=== PATIENT | male | born 1930 | race Caucasian/White ===

== ENCOUNTER 2016-12-02 10:54 | Outpatient (CLI) | payer MEDICARE ==
[~2016-12-02] VITALS: Ht 185.4 cm; Wt 104.5 kg
--- NOTE | ~2016-12-02 | HEMODYNAMI ---
PATIENT:MICHAEL TREJO MEDICAL RECORD: [id number] : 32 LOCATION:[facility] ADMISSION DATE: 12/02/16 Generatedon:12/02/201613:20 Patient name: MICHAEL TREJO Patient #: [id number] SSN: : 1930 Date of study: 12/02/2016 Page: Of Hemodynamic Procedure Report Patient Data Patient Demographics Procedure consent was obtained First Name: MICHAEL Gender: Male Last Name: NEIL : 1930 [facility] Initial: W Age: 86 year(s) Patient #: [id number] Race: Unknown Additional ID: [id number] Contact details Address: [address] [place] [address] DRIVE State: [place] City: [place] Zip code: [address] Admission Admission Data Admission Date: 12/02/2016 Admission Time: 10:54 Lab Results Lab Result Date: 12/02/2016 Lab Result Time: 11:30 Biochemistry Name Units Result Min Max BUN mg/dl 28 --(----)-* 7 18 Creatinine mg/dl 1.6 --(----)-* 0.6 1.3 CBC Name Units Result Min Max Hematocrit % 37.3 *-(----)-- 42 54 Hemoglobin g/dl 12.2 *-(----)-- 13.5 17.5 Procedure Procedure Types Cath Procedure Diagnostic Procedure [facility] w/Coronaries PCI Procedure Coronary Stent Initial Miscellaneous Procedures Moderate Sedation up to 30 minutes Procedure Description Procedure Date Procedure Date: 12/02/2016 Procedure Start Time: 12:47 Procedure End Time: 13:10 Procedure Staff Name Function Dhara Monique RT Scrub Roman Harris RN Nurse Miquel Lynn MD Performing Physician Rio Prasad RT Monitor Procedure Data Cath Procedure Fluoroscopy Diagnostic fluoroscopy Total fluoroscopy Time: 8.3 time: 8.3 min min Diagnostic fluoroscopy Total fluoroscopy dose: dose: 492.77 mGy 492.77 mGy Contrast Material Contrast Material Type Amount (ml) Isovue 300 120 Entry Location Entry Primary Successful Side Size Upsize Upsize Entry Closure [place] ccessful Closure Location (Fr) 1 (Fr) 2 (Fr) Remarks Device Remarks Radial Right 6 Fr Mechanical artery Short Compression Femoral Right 7 Fr Exoseal artery Short Estimated blood loss: 10 ml Diagnostic catheters Device Type Used For End Catheter Placement Terumo 5Fr [place] 110cm Procedure catheter Procedure Complications No complications Procedure Medications Medication Administration Route Dosage Oxygen NC 2 l/min Heparin Flush Bag added to field 2 bags (1000units/500ml NS) 0.9% NaCl I.V. 100 ml/hr Radial Cocktail added to field 1 syringe (Verapomil 2mg/Nitro 400mcg/Heparin 1500units) Fentanyl I.V. 50 mcg Versed I.V. 1 mg Radial Cocktail I.A. 1 syringe (Verapomil 2mg/Nitro 400mcg/Heparin 1500units) Heparin Bolus I.V. 4000 units Fentanyl I.V. 25 mcg Versed I.V. 0.5 mg Hemodynamics Rest HGB: 12.2 (g/dl) Heart Rate: 56 (bpm) Pressure Samples Time Site Value (mmHg) Purpose Heart Use Rate(bpm) 12:50 AO 96/52(46) Snapshot 78 12:50 AO 127/38(44) Snapshot 60 Snapshots Pre Cath Intra NCS Post Cath Vital Signs Time Heart Resp SPO2 NIBP (mmHg) Rhythm Pain Sedation Rate (ipm) (%) Status Level (bpm) 12:38:44 56 17 98 172/80(151) NSR 0 (11) 10(A) , No pain 12:42:58 57 17 94 137/81(121) NSR 0 (11) 10(A) , No pain 12:47:14 56 17 96 140/69(116) NSR 0 (11) 10(A) , No pain 12:51:30 60 17 93 119/59(85) NSR 0 (11) 9(A) , No pain 12:56:31 57 17 94 129/59(96) NSR 0 (11) 9(A) , No pain 13:00:43 59 18 95 122/64(94) NSR 0 (11) 9(A) , No pain 13:05:01 57 17 95 120/62(96) NSR 0 (11) 9(A) , No pain 13:09:19 56 18 95 126/58(91) NSR 0 (11) 9(A) , No pain Medications Time Medication Route Dose Verified Delivered Reason Note s Effectiveness by by 12:37:56 Oxygen NC 2 l/min Roman Owens Per physician Steven Harris RN RN 12:38:06 Heparin Flush added 2 bags Roman Owens used for Bag to Steven Harris RN procedure (1000units/500ml field RN NS) 12:38:19 0.9% NaCl I.V. 100 Roman Morrelly Per physician ml/hr Steven Harris RN RN 12:41:44 Radial Cocktail added 1 Roman Owens used for (Verapomil to syringe Steven Harris RN procedure 2mg/Nitro field RN 400mcg/Hepari 12:47:36 Fentanyl I.V. 50 mcg Roman Owens for sedation Steven Harris RN RN 12:47:44 Versed I.V. 1 mg Roman Owens for sedation Steven Harris RN RN 12:49:16 Radial Cocktail I.A. 1 Roman Arguellorey for (Verapomil syringe Steven Lynn MD vasodilation 2mg/Nitro RN 400mcg/Hepari 12:55:19 Heparin Bolus I.V. 4000 Roman Owens for units Steven Harris RN anticoagulation RN 12:55:25 Fentanyl I.V. 25 mcg Roman Owens for sedation Steven Harris RN RN 12:55:31 Versed I.V. 0.5 mg Roman Owens for sedation Steven Harris RN rubber process hand Log Time Note 12:04:16 Dhara Monique RT(R) sent for patient. Start room use. 12:04:17 Time tracking: Regular hours 12:04:22 Plan of Care:Hemodynamics will remain stable., Cardiac rhythm will remain stable., Comfort level will be maintained., Respiratory function will remain adequate., Patient/ family verbilizes understanding of procedure., Procedure tolerated without complication., Recovers from procedure without complications.. 12:27:35 Patient received from Pre/Post Procedure Room to CCL 3 Alert and oriented. Tansferred to table in Supine position. 12:27:36 Correct patient and procedure confirmed by team. 12:27:36 Warm blankets applied, and kris hugger turned on for patient comfort. 12:27:38 Signed procedure consent form obtained from patient. 12:27:39 ECG and BP/O2 sat monitors applied to patient. 12:27:46 H&P Date Dictated: 11/30/2016 Within 30 days and on chart., H&P Addendum completed by physician on day of procedure. (MUST COMPLETE FOR ALL OUTPATIENTS). 12:27:47 Pre-procedure instructions explained to patient. 12:27:48 Pre-op teaching completed and patient verbalized understanding. 12:27:49 Family in waiting room. 12:27:50 Patient NPO since Midnight. 12:37:30 Vital chart was started 12:37:56 Oxygen 2 l/min NC was administered by Roman Harris RN; Per physician; 12:38:06 Heparin Flush Bag (1000units/500ml NS) 2 bags added to field was administered by Roman Harris RN; used for procedure; 12:38:19 0.9% NaCl 100 ml/hr I.V. was administered by Roman Harris RN; Per physician; 12:39:54 Is the patient allergic to Iodine/contrast media? No. 12:39:55 Is patient on blood thinner?Yes 12:39:58 ACC The patient was administered the following blood thiners within the last 24 hours: ACCPlavix 12:39:59 Patient diabetic? Yes. 12:40:00 If diabetic: On Metformin? No 12:40:03 Previous problem with sedation/anesthesia? No ? 12:40:04 Snore? Yes 12:40:05 Sleep apnea? No 12:40:06 Opens mouth fully? Yes 12:40:06 Deviated septum? No 12:40:07 Sticks out tongue? Yes 12:40:09 Airway obstruction? No ? 12:40:11 Dentures? No ? 12:40:14 Modified Carlos's test Ulnar < 7 seconds 12:40:16 Patient pain scale 0/10 ?. 12:40:24 IV patent on arrival in left forearm with 0.9% NaCl at [facility]. 12:41:06 Lab Result : Hemoglobin 12.2 g/dl 12:41:06 Lab Result : Hematocrit 37.3 % 12:41:06 Lab Result : BUN 28 mg/dl 12:41:06 Lab Result : Creatinine 1.6 mg/dl 12:41:09 Lab results completed and on chart. 12:41:11 Right Radial & Right Groin area was prepped with chlora-prep and draped in sterile fashion 12:41:12 Sharps counted by scrub and verified by R.N. 12:41:12 Alarms reviewed by R. N. 12:41:14 Use device set Radial Dx 12:41:15 Tegaderm 4 x 4 opened to sterile field. 12:41:16 Acist Manifold opened to sterile field. 12:41:17 Acist Syringe opened to sterile field. 12:41:17 Acist Hand Control opened to sterile field. 12:41:18 Bag Decanter opened to sterile field. 12:41:18 Medline Cath Pack opened to sterile field. 12:41:19 St Toribio 260cm J .035 wire opened to sterile field. 12:41:19 Terumo 6Fr Slender Glidesheath opened to sterile field. 12:41:44 Radial Cocktail (Verapomil 2mg/Nitro 400mcg/Heparin 1500units) 1 syringe added to field was administered by Roman Harris RN; used for procedure; 12:42:10 Baseline sample Acquired. 12:42:16 Rhythm: sinus rhythm 12:42:18 Full Disclosure recording started 12:46:40 --------ALL STOP TIME OUT------ 12:46:40 Physician arrived 12:46:41 Final Timeout: patient, procedure, and site verified with staff and physician. All members of the team are in agreement. 12:46:42 Right Radial & Right Groin site verified by team. 12:46:44 Physical assessment completed. ASA score P 2 - A patient with mild systemic disease as per Miquel Lynn MD. 12:46:48 Sedation plan: IV Moderate Sedation Versed, Fentanyl 12:46:50 Zero performed for pressure channel P1 12:46:57 Zero performed for pressure channel P1 12:47:36 Fentanyl 50 mcg I.V. was administered by Roman Harris RN; for sedation; 12:47:44 Procedure started. 12:47:44 Versed 1 mg I.V. was administered by Roman Harris RN; for sedation; 12:47:50 Local anesthetic to right radial artery with Lidocaine 2% by Miquel Lynn MD.INITIAL ACCESS ONLY 12:47:57 A 6 Fr Short sheath was inserted into the Right Radial artery 12:49:00 A Terumo 5Fr [place] 110cm catheter was advanced over the wire and used for Procedure. 12:49:16 Radial Cocktail (Verapomil 2mg/Nitro 400mcg/Heparin 1500units) 1 syringe I.A. was administered by Miquel Lynn MD; for vasodilation; 12:49:54 LV gram done using VELASQUEZ 12:49:58 Injector settings: Ml/sec: 5, Volume: 15, 12:50:16 EF : 55 % 12:50:37 LCA angiography performed. 12:52:15 RCA angiography performed. 12:52:25 Terumo 7Fr [place] Sheath opened to sterile field. 12:52:30 Triplett Sci Choice PT Extra Support J 300cm .014 gu opened to sterile field. 12:54:07 Medtronic Launcher 7Fr AR 2.0 guide catheter opened to sterile field. 12:54:20 Local anesthetic to right femoral artery with Lidocaine 2% by Miquel Lynn MD.ADDITIONAL ACCESS 12:54:27 A 7 Fr Short sheath was inserted into the Right Femoral artery 12:54:47 7 Fr AR 2 guide catheter was inserted over the wire 12:55:19 Heparin Bolus 4000 units I.V. was administered by Roman Harris RN; for anticoagulation; 12:55:25 Fentanyl 25 mcg I.V. was administered by Roman Harris RN; for sedation; 12:55:31 Versed 0.5 mg I.V. was administered by Roman Harrsi RN; for sedation; 12:56:02 CHOICE PT ES wire advanced. 12:56:08 Wire removed. 12:56:24 Triplett Sci Choice PT Extra Support J 300cm .014 gu opened to sterile field. 12:56:32 CHOICE PT ES wire advanced. 12:57:32 Wire advanced across lesion. 12:58:23 Rodarte Whisper J 300cm 0.014 guide wire opened to sterile field. 12:58:29 WHISPER wire advanced. 13:00:36 Inflation Number: 1 A Medtronic Integrity 3.0 X 15 stent was prepped and advanced across the Mid RCA. The stent was deployed at 19 JESIKA for 0:10 (min:sec). 13:00:47 Inflation number: 2 The stent balloon was then re-inflated across the Mid RCA to 23 JESIKA for 0:10 (min:sec). 13:04:34 Inflation Number: 1 A Medtronic Integrity 3.5 X 15 stent was prepped and advanced across the Prox RCA. The stent was deployed at 17 JESIKA for 0:10 (min:sec). 13:04:59 Stent catheter was removed intact over wire. 13:05:15 Cordis 7Fr Exoseal opened to sterile field. 13:07:20 Sheath removed intact; hemostasis achieved with Exoseal to the Right Femoral artery. 13:07:31 Sheath removed intact; hemostasis achieved with Mechanical Compression to the Right Radial artery. 13:08:03 Procedure ended.(Physican Out) 13:08:14 Fluoroscopy time 08.30 minutes. 13:08:23 Contrast amount:Isovue 300 120ml. 13:08:28 Fluoroscopy dose: 492.77 mGy 13:08:28 Flurop Dose total: 492.77 13:08:30 Sharps counted by scrub and verified by R.N. 13:08:33 TR band inflated with 12cc of air. 13:08:34 Insertion/operative site no bleeding no hematoma. 13:08:37 Post-op/insertion site Right Femoral artery dressed using a 4 x 4 and Tegaderm. 13:08:42 Post right femoral artery:stable, soft, clean and dry 13:08:44 Post Procedure Pulses reassessed and unchanged 13:08:47 Post-procedure physical assessment completed. ASA score P 2 - A patient with mild systemic disease as per Miquel Lynn MD. 13:08:49 Post procedure rhythm: unchanged. 13:08:51 Estimated blood loss: 10 ml 13:08:53 Patient needs reinforcement of post procedure teaching. 13:08:53 Post procedure instruction explained to patient.Patient verbalizes understanding. 13:10:03 Procedure type changed to Cath procedure, Diagnostic procedure, LHC, LHC w/Coronaries, PCI procedure, Coronary Stent Initial, Miscellaneous Procedures, Moderate Sedation up to 30 minutes 13:10:04 Procedure and supply charges have been captured, reviewed, submitted and are correct. 13:10:06 Procedure Complication : No complications 13:10:08 See physician's report for complete and final results. 13:10:08 Vital chart was stopped 13:10:10 Report given to Pre/Post Procedure Room. 13:10:12 Patient transfered to Pre/Post Procedure Room with Stretcher. 13:10:14 Full Disclosure recording stopped 13:10:14 Procedure ended. 13:10:17 End room use (Document Last) Intervention Summary Intervention Notes Time ActionType Lesion and Equipment Action# Pressure Duration Attributes Used 13:00:36 Place stent Mid RCA Medtronic 1 19 00:10 Integrity 3.0 X 15 stent 13:00:47 Reinflate Mid RCA Medtronic 2 23 00:10 stent Integrity balloon 3.0 X 15 stent 13:04:34 Place stent Prox RCA Medtronic 1 17 00:10 Integrity 3.5 X 15 stent Device Usage Item Name Manufacture Quantity Catalog Number Hospital Part Current Minim al Lot# / Charge Number Stock Stock Serial# Code Tegaderm 4 1 [id number] 5 x 4 Acist Acist 1 99877 [id number] 156774 [id number] 5 Manifold [employer] Inc Acist Hand Acist 1 50784 261706 624744 406905 5 Control [employer] Inc Acist Acist 1 91568 530826 314808 056419 20 Syringe Medical Systems Inc Medline Cardinal 1 [id number] 089236 62010 506156 5 Cath Pack Health Bag Microtek 1 2002S 646888 59156 606640 5 [employer] Terumo 6Fr Terumo 1 [id number] 452221 692622 554617 [address] Tor[address] St Toribio 1 850734 581943 233028 477519 30 260cm J .035 wire Terumo 5Fr Terumo 1 40-1916 900722 885891 007947 5 [place] 110cm catheter Terumo 7Fr Terumo 1 [id number] 443143 063858 737860 5 [place] Sheath Triplett Sci Triplett 2 [id number] 369316 235014 221261 5 Choice PT Scientific Extra Support J 300cm .014 gu Medtronic Medtronic 1 [id number] 871689 180776 614604 0 Launcher 7Fr [place] 2.0 guide catheter Rodarte Rodarte 1 [id number] 931171 018252 564378 5 Whisper J Vascular 300cm 0.014 guide wire Medtronic Medtronic 1 [id number] 782801 518415 611798 5 [id number] Integrity 3.0 X 15 stent Medtronic Medtronic 1 [id number] 496096 267370 5 [id number] Integrity 3.5 X 15 stent Cordis 7Fr Cardinal 1 [id number] 510763 244780 789671 5 [facility] Signature Audit [place] Stage Time Signature Unsigned Intra-Procedure 12/02/2016 Rio Prasad RT(R) 1:10:52 PM RT(R) 12/02/2016 1:14:17 PM Intra-Procedure 12/02/2016 Rio Prasad RT(R) 1:15:14 PM RT(R) 12/02/2016 1:18:46 PM Intra-Procedure 12/02/2016 Rio Prasad 1:20:45 PM RT(R) Signatures Monitor : Rio Prasad RT Signature : Date : Time : [id number] [place] [address]
[~2016-12-02 10:54] MED LIST: ALLEGRA180 MG PO; ASPIRIN 81 MG E81 MG PO; DIABETA1.25 MG PO; LEVOTHROID75 MCG PO; LIPITOR40 MG PO; LOTENSIN20 MG PO; MULTI-DAY VITAM1 TAB PO; PACERONE100 MG PO; PLAVIX75 MG PO; PROSCAR5 MG PO
[2016-12-02 11:29] VITALS: BP 235/94; Ht 185.4 cm; Wt 104.5 kg
[2016-12-02 11:46] LABS: EOSINOPHILS 2.9 % (0-7); HEMATOCRIT 37.3 % (42.0-54.0); HEMOGLOBIN 12.2 g/dL (13.5-17.5); IMMATURE GRANULOCYTES 0.5 % (0-5); LYMPHOCYTES 27.2 % (15-50); MCH 29.3 pg (26.0-34.0); MCHC 32.7 g/dL (31.0-37.0); MCV 89.4 fL (80.0-100.0); MEAN PLATELET VOLUME 10.2 fL (7.4-10.4); MONOCYTES 8.6 % (2-11); NEUTROPHILS 59.8 % (40-80); PLATELET COUNT 102 10x3/uL (130-400); RBC 4.17 10x6/uL (4.20-6.10); RDW 13.8 % (11.5-14.5); WBC 4.2 10x3/uL (4.8-10.8)
[2016-12-02 12:07] LABS: ANION GAP 13.4 mmol/L (8-16); CALCIUM 8.9 mg/dL (8.5-10.1); CARBON DIOXIDE 24.6 mmol/L (21.0-32.0); CREATININE - SERUM 1.6 mg/dL (0.6-1.3)
--- NOTE | 2016-12-02 13:53 | NUR ---
1340 LYING FLAT, RESTING WITH EYES CLOSED. ROOM AIR W NO DISTRESS. SINUS JASVIR RATE 53 WNO C/O CHEST PAIN. PULSES PALP X 4. R GROIN 7F EXOSEAL C/D/I WITH NO HEMATOMA OR BLEEDING. AT BEDSIDE. DENIES NEEDS AT THIS TIME.
--- NOTE | 2016-12-02 14:29 | NUR ---
REMAINS FLAT, ALL VITALS WNL. R GROIN 7F EXOSEAL C/D/I WITH NO HEMATOMA OR BLEEDING. REMAINS AT SIDE.
--- NOTE | 2016-12-02 15:31 | NUR ---
RESTING QUIETLY. VSS. RIGHT GROIN AND RIGHT WRIST CDI, NO BLEEDING OR HEMATOMA NOTED. AT BEDSIDE, CALL LIGHT WITHIN REACH.
--- NOTE | 2016-12-02 16:18 | NUR ---
2CC OF AIR REMOVED FROM TR BAND. NO BLEEDING NOTED.
--- NOTE | 2016-12-02 16:30 | NUR ---
HOB ELEVATED 30 DEGREES. RIGHT GROIN CDI. 2CC OF AIR REMOVED FROM TR BAND.
--- NOTE | 2016-12-02 16:43 | NUR ---
LEFT HAND PIV D/C'D WITH CATHETER INTACT, BAND AID TO SITE. UP TO BEDSIDE TO GET DRESSED.
--- NOTE | 2016-12-02 16:50 | NUR ---
UP TO RESTROOM TO VOID.
--- NOTE | 2016-12-02 16:55 | NUR ---
DISHCARGE INSTRUCTIONS GIVEN, VERBALIZED UNDERSTANDING. REMAINING AIR REMOVED FROM TR BAND, DRESSING TO SITE.
--- NOTE | 2016-12-02 17:05 | NUR ---
TAKEN OUT VIA WHEELCHAIR BY CATH PIPING ENGINEER. LEFT FACILITY WITH FAMILY MEMBER AND ALL PERSONAL BELONGINGS.
--- NOTE | 2016-12-04 10:19 | OP ---
PATIENT NAME: MICHAEL TREJO MEDICAL RECORD: [id number] :32 LOCATION:D.CAT ADMISSION DATE: SURGEON: KRISTI RILEY MD DATE OF OPERATION: 12/02/2016 PROCEDURES: 1. PTCA stent, RCA. 2. Left heart catheterization. 3. Selective coronary angiography. 4. Left ventriculogram. INDICATIONS: Angina and coronary artery disease. PROCEDURE IN DETAIL: After informed consent was obtained and after a detailed explanation of the risks, benefits as well as alternative therapies, the patient elected to proceed with angiogram and angioplasty. The right femoral area was prepped and draped in normal sterile fashion. The right femoral artery was cannulated via modified Seldinger technique with placement of 7-Welsh sheath. All catheters exchanged through this sheath. FINDINGS: The left ventriculogram was performed in standard 30-degree VELASQUEZ view, reveals good cardiac wall motion throughout all segments. Overall ejection fraction estimated at 60%. SELECTIVE CORONARY ANGIOGRAPHY: 1. Left main is with no significant angiographic disease. 2. Left anterior descending has 30%-40% stenosis in the mid vessel. This does not appear to be flow-limiting. 3. Left circumflex shows moderate irregularities, but no flow-limiting stenosis. 4. Right coronary has 80% stenosis times 2 in the proximal and mid vessel. PTCA STENT OF THE RIGHT CORONARY: Stents used were 3.0 x 15 and a 3.5 x 15, both Integrity stents. Result was 0% residual stenosis. No angiographic evidence of dissection or thrombus. OVERALL IMPRESSION: Successful percutaneous transluminal coronary angioplasty stent of the RCA going from 80% initial stenosis times 2 to 0% residual. TRANSINT:[id number] Voice Confirmation ID: [id number] DOCUMENT ID: [id number] KRISTI RILEY MD at 1019 CC: [id number] DICTATION DATE: 12/02/16 1309 FREEZER PERSON: 12/02/161951 [facility] CLI 12/02/[address] [address]
== END 2016-12-02 17:05 | disposition home or self-care (01) ==
LOC: D.CATH 10:54
PROVIDERS: Internal Medicine Interventional Cardiology
DX: I25.10 Atherosclerotic heart disease of native coronary artery without angina pectoris (principal); I10 Essential (primary) hypertension; R06.00 Dyspnea, unspecified; K21.9 Gastro-esophageal reflux disease without esophagitis; E78.5 Hyperlipidemia, unspecified

== ENCOUNTER → 2017-11-26 09:26 | Outpatient (CLI) | payer MEDICARE ==
[~2017-11-26] VITALS: Ht 185.4 cm; Wt 100.0 kg
--- NOTE | ~2017-11-26 | HEMODYNAMI ---
PATIENT:MICHAEL TREJO MEDICAL RECORD: [id number] : 32 LOCATION:[facility] ADMISSION DATE: 11/26/17 Generatedon:11/26/201714:34 Patient name: MICHAEL TREJO Patient #: [id number] SSN: : 1930 Date of study: 11/26/2017 Page: Of Hemodynamic Procedure Report Patient Data Patient Demographics Procedure consent was obtained First Name: MICHAEL Gender: Male Last Name: NEIL : 1930 [facility] Initial: W Age: 87 year(s) Patient #: [id number] Race: Unknown Additional ID: [id number] Contact details Address: [address] [place] [address] [address]IVE State: [place] City: [place] Zip code: [address] Past Medical History Allergies: No known allergies Admission Admission Data Admission Date: 11/26/2017 Admission Time: 9:26 Lab Results Lab Result Date: 11/26/2017 Lab Result Time: 10:35 Biochemistry Name Units Result Min Max BUN mg/dl 30 --(----)-* 7 18 Creatinine mg/dl 1.6 --(----)-* 0.6 1.3 CBC Name Units Result Min Max Hematocrit % 32.4 *-(----)-- 42 54 Hemoglobin g/dl 10.9 *-(----)-- 13.5 17.5 Procedure Procedure Types Cath Procedure Diagnostic Procedure [facility] w/Coronaries Sedation Charges Moderate Sedation up to 15 minutes PCI Procedure Coronary Stent Coronary Stent Initial Procedure Description Procedure Date Procedure Date: 11/26/2017 Procedure Start Time: 14:01 Procedure End Time: 14:32 Procedure Staff Name Function Miquel Lynn MD Performing Physician Rio Prasad RT Monitor Bryson Vázquez RN Nurse Dhara Monique RT Scrub Procedure Data Cath Procedure Fluoroscopy Diagnostic fluoroscopy Total fluoroscopy Time: time: 12.1 min 12.1 min Diagnostic fluoroscopy Total fluoroscopy dose: dose: 1297 mGy 1297 mGy Contrast Material Contrast Material Type Amount (ml) Isovue 300 137 Entry Location Entry Primary Successful Side Size Upsize Upsize Entry Closure Succes sful Closure Location (Fr) 1 (Fr) 2 (Fr) Remarks Device Remarks Femoral Right 5 Fr 6 Fr Exoseal artery Short Estimated blood loss: 10 ml Diagnostic catheters Device Type Used For End Catheter Placement MULTIPACK Pigtail 5 Fr Procedure catheter MULTIPACK JL 4.0 5Fr Procedure catheter MULTIPACK 3DRC 5Fr Procedure catheter DIAGNOSTIC AR 2 MOD 5 Fr Procedure catheter ([id number]) Procedure Complications No complications Procedure Medications Medication Administration Route Dosage 0.9% NaCl I.V. 100 ml/hr Oxygen etCO2 Nasal cannula 2 l/min Heparin Flush Bag added to field 2 bags (1000units/500ml NS) Lidocaine 2% added to field 20 Versed I.V. 1 mg Fentanyl I.V. 50 mcg Heparin Bolus I.V. 4000 units Versed I.V. 1 mg Hemodynamics Rest HGB: 10.9 (g/dl) Heart Rate: 37 (bpm) Snapshots Pre Cath Intra NCS Post Cath Vital Signs Time Heart Resp SPO2 etCO2 NIBP (mmHg) Rhythm Pain Sedation Rate (ipm) (%) (mmHg) Status Level (bpm) 13:46:18 51 18 96 0 190/85(160) NSR 0 (11) 10(A) , No pain 13:51:50 47 14 100 32 170/80(142) NSR 0 (11) 10(A) , No pain 13:57:15 56 15 94 31.2 159/59(130) NSR 0 (11) 10(A) , No pain 14:01:58 56 13 97 28.3 135/80(96) NSR 0 (11) 10(A) , No pain 14:06:41 48 13 98 42.5 143/72(123) NSR 0 (11) 9(A) , No pain 14:11:52 46 13 98 35.8 154/73(119) NSR 0 (11) 9(A) , No pain 14:16:41 48 16 98 7.4 160/68(126) NSR 0 (11) 9(A) , No pain 14:21:29 46 14 98 36.5 166/72(131) NSR 0 (11) 9(A) , No pain 14:26:18 49 15 96 29.8 152/72(120) NSR 0 (11) 10(A) , No pain 14:31:18 46 17 98 34.2 Measuring NSR 0 (11) 10(A) , No pain 14:32:37 45 16 98 35 Disturbed NSR 0 (11) 10(A) , No pain Medications Time Medication Route Dose Verified Delivered Reason Notes Effectiveness by by 13:52:39 0.9% NaCl I.V. 100 Bryson Bryson Per physician ml/hr Gurpreet Vázquez RN RN 13:52:59 Oxygen etCO2 2 Bryson Bryson Per physician Nasal l/min Gurpreet Vázquez cannula RN RN 13:53:11 Heparin Flush added 2 Bryson Bryson used for Bag to bags Gurpreet Vázquez procedure (1000units/500ml field RN RN NS) 13:53:25 Lidocaine 2% added 20ml Bryson Bryson for local to vial Gurpreet Vázquez anesthetic field RN RN 13:58:00 Versed I.V. 1 mg Bryson Bryson for sedation Gurpreet Vázquez RN RN 13:58:08 Fentanyl I.V. 50 Bryson Bryson for sedation mcg Gurpreet Vázquez RN RN 14:07:48 Heparin Bolus I.V. 4000 Bryson Bryson for units Gurpreet Vázquez anticoagulation RN RN 14:19:57 Versed I.V. 1 mg Bryson Bryson for sedation Gurpreet Vázquez RN book retailer Log Time Note 13:26:58 Rio Prasad RT(R) sent for patient. Start room use. 13:26:59 Time tracking: Regular hours 13:27:03 Plan of Care:Hemodynamics will remain stable., Cardiac rhythm will remain stable., Comfort level will be maintained., Respiratory function will remain adequate., Patient/ family verbilizes understanding of procedure., Procedure tolerated without complication., Recovers from procedure without complications.. 13:37:57 Patient received from Pre/Post Procedure Room to CCL 1 Alert and oriented. Tansferred to table in Supine position. 13:37:58 Warm blankets applied, and kris hugger turned on for patient comfort. 13:37:59 Correct patient and procedure confirmed by team. 13:38:00 Signed procedure consent form obtained from patient. 13:38:01 ECG and BP/O2 sat monitors applied to patient. 13:38:02 Full Disclosure recording started 13:44:34 Vital chart was started 13:52:39 0.9% NaCl 100 ml/hr I.V. was administered by Bryson Vázquez RN; Per physician; 13:52:48 Baseline sample Acquired. 13:52:59 Oxygen 2 l/min etCO2 Nasal cannula was administered by Bryson Vázquez RN; Per physician; 13:53:11 Heparin Flush Bag (1000units/500ml NS) 2 bags added to field was administered by Bryson Vázquez RN; used for procedure; 13:53:14 Rhythm: sinus rhythm 13:53:25 Lidocaine 2% 20ml vial added to field was administered by Bryson Vázquez RN; for local anesthetic; 13:53:27 H&P Date Dictated: 11/18/2017 Within 30 days and on chart., H&P Addendum completed by physician on day of procedure. (MUST COMPLETE FOR ALL OUTPATIENTS). 13:53:28 Pre-procedure instructions explained to patient. 13:53:29 Pre-op teaching completed and patient verbalized understanding. 13:53:31 Family in waiting room. 13:53:32 Patient NPO since Midnight. 13:53:50 Patient allergic to No known allergies 13:53:52 Is the patient allergic to Iodine/contrast media? No. 13:53:53 Is patient on blood thinner?Yes 13:53:55 ACC The patient was administered the following blood thiners within the last 24 hours: ACCPlavix 13:54:09 Patient diabetic? No. 13:54:20 Previous problem with sedation/anesthesia? No ? 13:54:22 Snore? Yes 13:54:23 Sleep apnea? No 13:54:24 Deviated septum? No 13:54:25 Opens mouth fully? Yes 13:54:26 Sticks out tongue? Yes 13:54:27 Airway obstruction? No ? 13:54:29 Dentures? No ? 13:55:08 Pre procedure: right dorsailis pedis pulse 2+ Normal; easily identifiable; not easily obliterated 13:55:10 Patient pain scale 0/10 ?. 13:55:36 DIAGNOSTIC WIRE .035 260cm J wire (231201) opened to sterile field. 13:55:39 IV patent on arrival in left forearm with 0.9% NaCl at [facility]. 13:56:34 Lab Result : BUN 30 mg/dl 13:56:34 Lab Result : Creatinine 1.6 mg/dl 13:56:34 Lab Result : Hemoglobin 10.9 g/dl 13:56:34 Lab Result : Hematocrit 32.4 % 13:56:37 Lab results completed and on chart. 13:56:43 Right groin area was prepped with chlora-prep and draped in sterile fashion 13:56:44 Alarms reviewed by R. N. 13:56:44 Sharps counted by scrub and verified by R.N. 13:56:47 Use device set Femoral Dx 13:56:49 ACIST Syringe (19730) opened to sterile field. 13:56:49 Bag Decanter (2002S) opened to sterile field. 13:56:53 ACIST Hand Control (97805) opened to sterile field. 13:56:53 ACIST Manifold (96282) opened to sterile field. 13:56:55 Tegaderm 4 x 4 (1626W) opened to sterile field. 13:56:55 PERCUTANEOUS ENTRY 19GA needle opened to sterile field. 13:56:56 DIAGNOSTIC Multipack 5Fr catheter set (KP5226) opened to sterile field. 13:56:57 Medline Cath Pack ([id number]) opened to sterile field. 13:57:07 SHEATH 5Fr Prelude ([id number]) opened to sterile field. 13:57:15 Physician arrived 13:57:16 --------ALL STOP TIME OUT------ 13:57:16 Final Timeout: patient, procedure, and site verified with staff and physician. All members of the team are in agreement. 13:57:18 Right groin site verified by team. 13:57:22 Physical assessment completed. ASA score P 2 - A patient with mild systemic disease as per Miquel Lynn MD. 13:57:26 Sedation plan: IV Moderate Sedation Medication:Versed, Fentanyl 13:57:29 Zero performed for pressure channel P1 13:58:00 Versed 1 mg I.V. was administered by Bryson Vázquez RN; for sedation; 13:58:08 Fentanyl 50 mcg I.V. was administered by Bryson Vázquez RN; for sedation; 14:00:54 Procedure started. 14:01:18 Local anesthetic to right femoral artery with Lidocaine 2% by Miquel Lynn MD.INITIAL ACCESS ONLY 14:01:28 A 5 Fr sheath was inserted into the Right Femoral artery 14:01:40 A MULTIPACK Pigtail 5 Fr catheter was advanced over the wire and used for Procedure. 14:02:23 LV gram done using VELASQUEZ 14:02:25 Injector settings: Ml/sec: 10, Volume: 20, 14:03:04 EF : 60 % 14:03:06 LV hemodynamics recorded. 14:03:10 Catheter exchanged over wire. 14:03:15 A MULTIPACK JL 4.0 5Fr catheter was advanced over the wire and used for Procedure. 14:03:52 INFLATOR Merit BasixCompak (FB3678) opened to sterile field. 14:03:53 SHEATH 6Fr Prelude ([id number]) opened to sterile field. 14:03:53 CHOICE PT Extra Support 182cm wire ([id number]) opened to sterile field. 14:04:23 LCA angiography performed. 14:04:28 Catheter exchanged over wire. 14:04:33 A MULTIPACK 3DRC 5Fr catheter was advanced over the wire and used for Procedure. 14:04:58 RCA angiography performed. 14:05:50 Catheter exchanged over wire. 14:05:54 A DIAGNOSTIC AR 2 MOD 5 Fr catheter ([id number]) was advanced over the wire and used for Procedure. 14:06:06 RCA angiography performed. 14:06:17 Catheter removed. 14:06:32 Sheath upsized to a 6 Fr Short. 14:06:44 GUIDE 6FR XBLAD 3.5 catheter ([id number]) opened to sterile field. 14:07:48 Heparin Bolus 4000 units I.V. was administered by Bryson Vázquez RN; for anticoagulation; 14:08:15 6 Fr xblad 3.5 guide catheter was inserted over the wire 14:09:30 ? wire advanced. 14:09:34 Guide Catheter removed. unable to cannulate vessel. 14:09:47 GUIDE 6FR Q 3.5 catheter ([id number]) opened to sterile field. 14:12:18 choice pt wire advanced. 14:14:04 The DANA RX 3.0 x 22 stent ([id number]) was advanced then removed because of failure to cross lesion 14:15:44 Inflate balloon Inflation number: 1 A EUPHORA 3.0 x 20 Balloon ([id number]) was prepped and advanced across the Prox LAD, then inflated to 17 JESIKA for 0:10 (min:sec). 14:15:49 Balloon removed over the wire. 14:18:03 WHISPER 190cm wire ([id number]) opened to sterile field. 14:18:09 EXOSEAL 6Fr (EX600) opened to sterile field. 14:18:22 whisper wire advanced and used as a luca wire. 14:19:00 whisper wire removed. 14:19:57 Versed 1 mg I.V. was administered by Bryson Vázquez RN; for sedation; 14:21:14 Inflation number: 3 The stent balloon was then re-inflated across the Prox LAD to 17 JESIKA for 0:10 (min:sec). 14:21:54 Stent catheter was removed intact over wire. 14:22:07 Wire removed. 14:23:05 CHOICE PT Extra Support 182cm wire ([id number]) opened to sterile field. 14:23:13 choice pt wire advanced. 14:25:26 Wire advanced across lesion. 14:26:09 The INTEGRITY RX 3.0 x 09 stent ([id number]) was advanced then removed because of failure to cross lesion 14:26:19 Wire removed. 14:26:20 Guide catheter removed. 14:26:28 Sheath removed intact; hemostasis achieved with Exoseal to the Right Femoral artery. 14:26:31 Procedure ended.(Physican Out) 14:27:48 Fluoroscopy time 12.10 minutes. 14:27:52 Flurop Dose total: 1297 14:27:52 Fluoroscopy dose: 1297 mGy 14:27:56 Contrast amount:Isovue 300 137ml. 14:27:57 Sharps counted by scrub and verified by R.N. 14:27:59 Insertion/operative site no bleeding no hematoma. 14:28:02 Post-op/insertion site Right Femoral artery dressed using a 4 x 4 and Tegaderm. 14:28:05 Post right femoral artery:stable, soft, clean and dry 14:28:06 Post Procedure Pulses reassessed and unchanged 14:28:08 Post-procedure physical assessment completed. ASA score P 2 - A patient with mild systemic disease as per Miquel Lynn MD. 14:28:11 Post procedure rhythm: unchanged., sinus rhythm 14:28:15 Estimated blood loss: 10 ml 14:28:16 Post procedure instruction explained to patient.Patient verbalizes understanding. 14:28:16 Patient needs reinforcement of post procedure teaching. 14:28:25 Procedure type changed to Cath procedure, Diagnostic procedure, LHC, LHC w/Coronaries, Sedation Charges, Moderate Sedation up to 15 minutes, PCI procedure, Coronary Stent, Coronary Stent Initial 14:32:24 Procedure and supply charges have been captured, reviewed, submitted and are correct. 14:32:26 Procedure Complication : No complications 14:32:27 Vital chart was stopped 14:32:28 See physician's report for complete and final results. 14:32:39 Report given to Pre/Post Procedure Room. 14:32:46 Patient transfered to Pre/Post Procedure Room with Stretcher. 14:32:48 Procedure ended. 14:32:48 Full Disclosure recording stopped 14:32:51 End room use (Document Last) Intervention Summary Intervention Notes Time ActionType Lesion and Equipment Used Action# Pressure Duration Attributes 14:14:04 Discard Prox LAD DANA RX 3.0 x Stent 22 stent ([id number]) 14:15:44 Inflate Prox LAD EUPHORA 3.0 x 1 17 00:10 balloon 20 Balloon ([id number]) 14:21:14 Reinflate Prox LAD DANA RX 3.0 x 3 17 00:10 stent 22 stent balloon ([id number]) 14:26:09 Discard INTEGRITY RX Stent 3.0 x 09 stent ([id number]) Device Usage Item Name Manufacture Quantity Catalog Number Hospital Part Current M inimal Lot# / Charge Number Stock Stock Serial# Code ACIST Syringe Acist 1 92532 944583 449157 791544 2 0 (19161) Medical Systems Inc Bag Decanter Microtek 1 2001S 968465 67603 703636 5 (2001S) Medical Inc. ACIST Hand Acist 1 24590 945745 901974 746754 5 Control Medical (83299) Systems Inc ACIST Manifold Acist 1 86396 933640 766574 535597 5 (42604) Medical Systems Inc Tegaderm 4 x 4 3M 1 1626W 035883 407673 018637 5 (1626W) PERCUTANEOUS Cook Medical 1 C08065 078811 060379 5 ENTRY 19GA needle DIAGNOSTIC Cardinal 1 WA9742 548117 02476 006478 3 0 Multipack 5Fr Health catheter set (OD5803) Medline Cath Cardinal 1 [id number] 977517 78609 641969 5 Pack Health ([id number]) SHEATH 5Fr Merit 1 [id number] 264792 531707 700184 5 Prelude Medical ([id number]) MULTIPACK Cardinal 1 935235 5 Pigtail 5 Fr Health catheter MULTIPACK JL Cardinal 1 760826 5 4.0 5Fr Health catheter INFLATOR Merit Merit 1 VD9740 640068 364429 693745 1 5 [employer] Medical (AZ9180) SHEATH 6Fr Merit 1 [id number] 651836 907710 615080 5 Prelude Medical ([id number]) CHOICE PT Spicer 2 [id number] 305452 885855 030903 5 Extra Support Scientific 182cm wire ([id number]) MULTIPACK 3DRC Cardinal 1 375344 [address] [place] 1 023487 934695 474272 671763 3 0 WIRE .035 260cm J wire (748052) DIAGNOSTIC AR Cardinal 1 [id number] 542799 282180 855239 2 0 2 MOD 5 Fr Health catheter (978682G) GUIDE 6FR Cardinal 1 [id number] 297271 170457 675724 1 0 XBLAD 3.5 Health catheter (47511359) GUIDE 6FR Q Spicer 1 [id number] 353923 891018 7798134 1 3.5 catheter Scientific ([id number]) DANA RX 3.0 x Medtronic 1 [id number] 375185 7361187 050314 5 [id number] 22 stent ([id number]) EUPHORA 3.0 x Medtronic 1 [id number] 097864 575253 662472 5 [id number] 20 Balloon ([id number]) WHISPER 190cm Rodarte 1 [id number] 370978 985033 746528 5 wire Vascular (2133264CR) INTEGRITY RX Medtronic 1 [id number] 833826 923812 125944 5 [id number] 3.0 x 09 stent ([id number]) EXOSEAL 6Fr Cardinal 1 EX600 231538 499156 802558 1 0 (EX600) Health Signature Audit [place] Stage Time Signature Unsigned Intra-Procedure 11/26/2017 Rio Prasad 2:33:59 PM RT(R) Signatures Monitor : Rio Prasad RT Signature : Date : Time : [address] [address]
--- NOTE | ~2017-11-26 | OP ---
PATIENT NAME: MICHAEL TREJO MEDICAL RECORD: [id number] :32 LOCATION:D.CAT ADMISSION DATE: SURGEON: KRISTI RILEY MD DATE OF OPERATION: 11/26/2017 PROCEDURES: 1. PTCA stent LAD. 2. Left heart catheterization. 3. Selective coronary angiography. 4. Left ventriculogram. INDICATION: Angina and coronary artery disease. PROCEDURE IN DETAIL: After informed consent was obtained and after a detailed description of the risks, benefits as well as alternative therapies, the patient elected to proceed with angiogram and angioplasty. The right femoral area is prepped and draped in normal sterile fashion. Right femoral artery was cannulated via modified Seldinger technique with placement of 6-Kyrgyz sheath. All catheters exchanged through the sheath. FINDINGS: Left ventriculogram was performed in standard 30-degree VELASQUEZ view, reveals preserved cardiac wall motion, ejection fraction is 60%. SELECTIVE CORONARY ANGIOGRAPHY: 1. Left main is with no significant angiographic disease. 2. Left anterior descending is tortuous with 75% stenosis in the proximal mid vessel. 3. The left circumflex has moderate irregularities, but no flow-limiting stenosis. 4. The right coronary has previously placed stents, these are widely patent with no significant restenosis. No disease elsewise throughout the RCA or its branches. PTCA STENT OF THE LAD: The stent used was a 3.0 x 22 mm [place]. The Result was 0% residual stenosis. OVERALL IMPRESSION: Successful percutaneous transluminal angioplasty stent of the left anterior descending going from 75% initial stenosis to 0% residual. TRANSINT:[id number] Voice Confirmation ID: [id number] DOCUMENT ID: [id number] KRISTI RILEY MD at 0932 CC: [id number] DICTATION DATE: 11/26/17 1431 POLE MAKER: 11/26/17 1446 DEP CLI 11/26/17 [place] [address]
[~2017-11-26 09:26] MED LIST changes: +ISOSORBIDE MONO30 M1 PO; +NITROGLYCERIN2.5 MG PO; +PROTONIX40 MG PO; +QUESTRAN PACK4 G/PKT PO
[2017-11-26 10:47] LABS: BASOPHILS 0.9 % (0-2); EOSINOPHILS 4.7 % (0-7); HEMATOCRIT 32.4 % (42.0-54.0); HEMOGLOBIN 10.9 g/dL (13.5-17.5); IMMATURE GRANULOCYTES 0.7 % (0-5); LYMPHOCYTES 27.8 % (15-50); MCH 30.4 pg (26.0-34.0); MCHC 33.6 g/dL (31.0-37.0); MCV 90.3 fL (80.0-100.0); MEAN PLATELET VOLUME 10.1 fL (7.4-10.4); MONOCYTES 9.4 % (2-11); NEUTROPHILS 56.5 % (40-80); PLATELET COUNT 103 10x3/uL (130-400); RBC 3.59 10x6/uL (4.20-6.10); RDW 14.3 % (11.5-14.5); WBC 4.5 10x3/uL (4.8-10.8)
[2017-11-26 11:01] LABS: ANION GAP 12.6 mmol/L (8-16); CALCIUM 8.5 mg/dL (8.5-10.1); CARBON DIOXIDE 25.1 mmol/L (21.0-32.0); CREATININE - SERUM 1.6 mg/dL (0.6-1.3); POTASSIUM - SERUM 4.7 mmol/L (3.5-5.1)
[2017-11-26 11:05] VITALS: BP 142/61; Ht 185.4 cm; Wt 100.0 kg
== END | disposition home or self-care (01) ==
LOC: D.CATH 09:26
PROVIDERS: Internal Medicine Interventional Cardiology
DX: I25.119 Atherosclerotic heart disease of native coronary artery with unspecified angina pectoris (principal); Z01.812 Encounter for preprocedural laboratory examination
CPT/HCPCS: 93458; C9600

== ENCOUNTER → 2018-03-07 10:08 | Outpatient (CLI) | payer MEDICARE ==
[~2018-03-07] VITALS: Ht 185.4 cm; Wt 100.0 kg
--- NOTE | ~2018-03-07 | HEMODYNAMI ---
PATIENT:MICHAEL TREJO MEDICAL RECORD: [id number] : 32 LOCATION:[facility] ADMISSION DATE: 03/07/18 Generatedon:03/07/201812:34 Patient name: MICHAEL TREJO Patient #: [id number] SSN: [id number] : 1930 Date of study: 03/07/2018 Page: Of Hemodynamic Procedure Report Patient Data Patient Demographics Procedure consent was obtained First Name: MICHAEL Gender: Male Last Name: NEIL : 1930 Middle Initial: W Age: 87 year(s) Patient #: [id number] Race: Unknown SSN: [id number] Additional ID: [id number] Contact details Address: [address] [place] [address] [address]IVE State: [place] City: [place] Zip code: [address] Past Medical History Allergies: No known allergies Admission Admission Data Admission Date: 03/07/2018 Admission Time: 10:08 Arrival Date: 02/28/2018 Arrival Time: 12:00 Admit Source: Other Insurance Payor: Medicare Height (in.): 73 BSA: 2.22 (m2) Height (cm.): 185.42 BMI: 28.5 (kg/m2) Weight (lbs.): 216 Weight (kg.): 97.98 Lab Results Lab Result Date: 03/07/2018 Lab Result Time: 0:00 Biochemistry Name Units Result Min Max BUN mg/dl 28 --(----)-* 7 18 Creatinine mg/dl 1.4 --(----)*- 0.6 1.3 CBC Name Units Result Min Max Hemoglobin g/dl 9.8 *-(----)-- 13.5 17.5 Procedure Procedure Types Cath Procedure Diagnostic Procedure Cardioversion External Procedure Description Procedure Date Procedure Date: 03/07/2018 Procedure Start Time: 12:28 Procedure End Time: 12:29 Procedure Staff Name Function Miquel Lynn MD Performing Physician Yissel Quinones RT Monitor Roman Harris RN Nurse Liz Long SHADIA Additional personnel Procedure Data Cath Procedure Fluoroscopy Diagnostic fluoroscopy Total fluoroscopy Time: 0 time: 0 min min Diagnostic fluoroscopy Total fluoroscopy dose: 0 dose: 0 mGy mGy Contrast Material Contrast Material Type Amount (ml) Isovue 300 0 Estimated blood loss: 0 ml Procedure Complications No complications Procedure Medications Medication Administration Route Dosage Oxygen etCO2 Nasal cannula 6 l/min 0.9% NaCl I.V. 100 ml/hr Refer to Anesthesia Notes for Sedation Medications Hemodynamics Rest BSA: 2.22 (m2) HGB: 9.8 (g/dl) O2 Consumption: Estimated: 243.34 (ml/min) O2 Consumption indexed: Estimated:109.61 (ml/min/m) Heart Rate: 60 (bpm) Snapshots Pre Cath Intra NCS Post Cath Vital Signs Time Heart Resp SPO2 etCO2 NIBP (mmHg) Rhythm Pain Sedation Rate (ipm) (%) (mmHg) Status Level (bpm) 12:24:24 62 19 98 30.7 133/78(117) NSR 0 (11) 10(A) , No pain 12:29:33 55 21 100 0 108/62(90) NSR 0 (11) 10(A) , No pain 12:33:12 47 20 100 12 90/44(61) NSR 0 (11) 10(A) , No pain Medications Time Medication Route Dose Verified Delivered Reason Notes Effective ness by by 12:27:11 Oxygen etCO2 6 Miquel Owens Per Nasal l/min Leah Harris RN physician cannula 12:27:20 0.9% NaCl I.V. 100 Miquel Roman Per ml/hr Leah Harris RN physician 12:27:27 Refer to Miquel Owens Anesthesia Leah Harris RN Notes for Sedation Medications Procedure Log Time Note 12:03:12 Roman Harris RN sent for patient. Start room use. 12:09:05 Diagnostic Cath Status : Elective 12:10:13 Time tracking: Regular hours (M-F 7:00 - 5:00) 12:10:16 Plan of Care:Hemodynamics will remain stable., Cardiac rhythm will remain stable., Comfort level will be maintained., Respiratory function will remain adequate., Patient/ family verbilizes understanding of procedure., Procedure tolerated without complication., Recovers from procedure without complications.. 12:10:59 Informed consent obtained and on chart 12:11:36 Admit Source: Other 12:11:40 Patient Height : 73 inches 12:11:48 Patient Weight : 216 lbs 12:11:48 Insurance Payor : Medicare 12:11:50 Arrival Date: 02/28/2018 12:00:00 PM 12:18:26 Lab Result : Hemoglobin 9.8 g/dl 12:18:26 Lab Result : Creatinine 1.4 mg/dl 12:18:26 Lab Result : BUN 28 mg/dl 12:18:33 Patient received from Pre/Post Procedure Room to CCL 3 Alert and oriented. Tansferred to table in Supine position. 12:18:34 Warm blankets applied, and kris hugger turned on for patient comfort. 12:18:35 Correct patient and procedure confirmed by team. 12:18:35 ECG and BP/O2 sat monitors applied to patient. 12:23:12 Vital chart was started 12:23:27 Baseline sample Acquired. 12:23:30 Rhythm: atrial fibrillation 12:23:31 Full Disclosure recording started 12:23:36 H&P Date Dictated: 03/07/2018 Within 30 days and on chart., H&P Addendum completed by physician on day of procedure. (MUST COMPLETE FOR ALL OUTPATIENTS). 12:23:37 Pre-op teaching completed and patient verbalized understanding. 12:23:38 Pre-procedure instructions explained to patient. 12:23:39 Family in waiting room. 12:23:41 Patient NPO since Midnight. 12:23:44 Is the patient allergic to Iodine/contrast media? No. 12:23:45 Was the patient premedicated? No 12:24:52 Is patient on blood thinner?Yes 12:24:56 ACC The patient was administered the following blood thiners within the last 24 hours: ACCPlavix, Xarelto 12:24:58 Patient diabetic? Yes. 12:24:59 If diabetic: On Metformin? No 12:25:01 Previous problem with sedation/anesthesia? No ? 12:25:03 Snore? Yes 12:25:04 Sleep apnea? No 12:25:05 Deviated septum? No 12:25:05 Opens mouth fully? Yes 12:25:07 Sticks out tongue? Yes 12:25:09 Airway obstruction? No ? 12:25:16 Dentures? Yes in tight 12:25: Pre procedure: right dorsailis pedis pulse 1+ Palpable, but thready & weak; easily obliterated 12::23 Pre procedure: left dorsailis pedis pulse 1+ Palpable, but thready & weak; easily obliterated 12::28 IV patent on arrival in left forearm with 0.9% NaCl at KVO. 12::30 Lab results completed and on chart. 12::34 Alarms reviewed by R. N. 12:: Sharps counted by scrub and verified by R.N. 12:: Physician arrived 12:: --------ALL STOP TIME OUT------ : Final Timeout: patient, procedure, and site verified with staff and physician. All members of the team are in agreement. 12:: Physical assessment completed. ASA score P 2 - A patient with mild systemic disease as per Miquel Lynn MD. 12:: Sedation plan: TIVA Medication:Propofol 12::44 Liz Nelson CRNA present and monitoring patient for TIVA. 12::45 Quick combo pads placed on patients chest and back. 12::49 Defibrillator synced and charged to 275 Joules. 12::11 Oxygen 6 l/min etCO2 Nasal cannula was administered by Roman Harris RN; Per physician; 12::20 0.9% NaCl 100 ml/hr I.V. was administered by Roman Harris RN; Per physician; 12:: Refer to Anesthesia Notes for Sedation Medications was administered by Roman Harris RN; ; ::12 Procedure started. 12::39 Shock delivered. 12::53 Patient cardioverted to sinus rhythm . 12::12 Procedure ended.(Physican Out) :: Fluoroscopy time 00.00 minutes. :: Fluoroscopy dose: 0 mGy :: Flurop Dose total: 0 :: Contrast amount:Isovue 300 0ml. :: Sharps counted by scrub and verified by R.N. 12::32 Insertion/operative site no bleeding no hematoma. 12::35 Post procedure rhythm: sinus rhythm :: Estimated blood loss: 0 ml 12:29:39 Post procedure instruction explained to patient.Patient verbalizes understanding. 12:29:40 Patient needs reinforcement of post procedure teaching. 12:29:44 Procedure and supply charges have been captured, reviewed, submitted and are correct. 12:29:48 Procedure Complication : No complications 12:29:50 Vital chart was stopped 12:29:50 See physician's report for complete and final results. 12:29:53 Report given to Pre/Post Procedure Room. 12:29:55 Patient transfered to Pre/Post Procedure Room with Stretcher. 12:29:57 Procedure ended. 12:29:57 Full Disclosure recording stopped 12:30:09 End room use (Document Last) Signature Audit [place] Stage Time Signature Unsigned Intra-Procedure 03/07/2018 Yissel Quinones 12:34:18 PM RT(R) Signatures Monitor : Yissel Quinones RT Signature : Date : Time : [place] [id number] [place] [address]
--- NOTE | ~2018-03-07 | OP ---
PATIENT NAME: MICHAEL TREJO MEDICAL RECORD: [id number] :31 LOCATION:D.CAT ADMISSION DATE: SURGEON: KRISTI RILEY MD DATE OF OPERATION: 03/07/2018 PROCEDURE: DC cardioversion. INDICATION: Atrial fibrillation. IV conscious sedation was performed per anesthesia. Continuous heart rate, O2 saturation, blood pressure monitoring all undertaken, all of which remained stable. He received one shock at 275 joules, restoring sinus rhythm. OVERALL IMPRESSION: Successful DC cardioversion from atrial fibrillation to sinus rhythm. TRANSINT:[id number] Voice Confirmation ID: [id number] DOCUMENT ID: [id number] KRISTI RILEY MD at 1230 CC: [id number] DICTATION DATE: 03/07/18 1233 MONOMER RECOVERY SUPERVISOR: 03/07/18 1302 DEP CLI 03/07/18 [place] [address] [place] [address]
[~2018-03-07 10:08] MED LIST changes: +ARICEPT10 MG PO; +BETAPACE 120 M120 MG PO; +XARELTO20 MG PO
[2018-03-07 10:33] VITALS: BP 154/77; Ht 185.4 cm; Wt 100.0 kg
[2018-03-07 10:38] LABS: BASOPHILS 0.5 % (0-2); EOSINOPHILS 2.4 % (0-7); HEMATOCRIT 30.5 % (42.0-54.0); HEMOGLOBIN 9.8 g/dL (13.5-17.5); IMMATURE GRANULOCYTES 0.5 % (0-5); MCH 29.6 pg (26.0-34.0); MCHC 32.1 g/dL (31.0-37.0); MCV 92.1 fL (80.0-100.0); MEAN PLATELET VOLUME 9.6 fL (7.4-10.4); MONOCYTES 9.2 % (2-11); NEUTROPHILS 62.4 % (40-80); RBC 3.31 10x6/uL (4.20-6.10); RDW 14.2 % (11.5-14.5); WBC 5.8 10x3/uL (4.8-10.8)
[2018-03-07 10:42] LABS: PLATELET COUNT 142 10x3/uL (130-400)
[2018-03-07 11:08] LABS: ANION GAP 11.2 mmol/L (8-16); CALCIUM 8.4 mg/dL (8.5-10.1); CARBON DIOXIDE 25.2 mmol/L (21.0-32.0); CREATININE - SERUM 1.4 mg/dL (0.6-1.3); POTASSIUM - SERUM 4.4 mmol/L (3.5-5.1)
[2018-03-07 11:11] LABS: INR 2.09 (0.85-1.17); PROTIME 22.9 SECONDS (11.6-15.0)
== END | disposition home or self-care (01) ==
LOC: D.CATH 10:08
PROVIDERS: Internal Medicine Interventional Cardiology
DX: I48.91 Unspecified atrial fibrillation (principal); Z01.812 Encounter for preprocedural laboratory examination

== ENCOUNTER → 2018-03-14 17:35 | Outpatient (CLI) | payer MEDICARE ==
[2018-03-07 10:33] VITALS: BMI 29.0
[2018-03-14 18:21] LABS: BASOPHILS 0.7 % (0-2); EOSINOPHILS 2.7 % (0-7); HEMATOCRIT 28.3 % (42.0-54.0); HEMOGLOBIN 8.9 g/dL (13.5-17.5); IMMATURE GRANULOCYTES 0.5 % (0-5); LYMPHOCYTES 25.7 % (15-50); MCHC 31.4 g/dL (31.0-37.0); MCV 92.2 fL (80.0-100.0); MEAN PLATELET VOLUME 10.6 fL (7.4-10.4); MONOCYTES 10.2 % (2-11); NEUTROPHILS 60.2 % (40-80); PLATELET COUNT 146 10x3/uL (130-400); RBC 3.07 10x6/uL (4.20-6.10); WBC 5.6 10x3/uL (4.8-10.8)
== END | disposition home or self-care (01) ==
LOC: D.LABREF 17:35
PROVIDERS: Internal Medicine Interventional Cardiology
DX: D64.9 Anemia, unspecified (principal)

== ENCOUNTER 2018-03-16 08:15 | Outpatient (CLI) | payer MEDICARE ==
[~2018-03-16] VITALS: Ht 185.4 cm; Wt 95.0 kg
[2018-03-16 11:17] VITALS: BP 132/54; Ht 185.4 cm; Wt 95.0 kg
== END 2018-03-16 13:00 | disposition home or self-care (01) ==
LOC: D.OPS 08:15
DX: D64.9 Anemia, unspecified (principal); Z01.812 Encounter for preprocedural laboratory examination

== ENCOUNTER 2018-04-01 11:30 | Inpatient (IN) | payer MEDICARE ==
[~2018-04-01] VITALS: Ht 185.4 cm; Wt 89.4 kg
--- NOTE | ~2018-04-01 | OP ---
PATIENT NAME: MICHAEL TREJO MEDICAL RECORD: [id number] :31 LOCATION:D. D.2114 ADMISSION DATE:04/01/18 SURGEON: BOAZ RODRIGUEZ MD DATE OF OPERATION: 04/04/2018 PREOPERATIVE DIAGNOSES: 1. Sick sinus syndrome. 2. Bradycardia. 3. Atrial fibrillation. 4. Coronary artery disease. 5. Hypertension. 6. Diabetes mellitus. 7. Hypothyroidism. POSTOPERATIVE DIAGNOSES: 1. Sick sinus syndrome. 2. Bradycardia. 3. Atrial fibrillation. 4. Coronary artery disease. 5. Hypertension. 6. Diabetes mellitus. 7. Hypothyroidism. PROCEDURE: Left subclavian vein dual lead pacemaker placement. SURGEON: Boaz Rodriguez MD CO-SURGEON: Bryan Doherty MD REPORT OF PROCEDURE: The patient's left chest was prepped and draped in sterile fashion. A 20 mL of 1% lidocaine with epinephrine was infused into the surrounding tissues. A transverse incision was made on the superior lateral aspect of the left upper chest. A subcutaneous pouch was made over the pectoral fascia. We then accessed the left subclavian vein with sticks times 2 and guidewires were advanced with ease. Fluoro was used to note that the wires were in good position in the venous system. The dilator and trocar devices were placed over the wires and the wires and dilators were removed. The leads were advanced through the trocars. At this point, Dr. Doherty positioned the leads appropriately in the atrium and ventricle. Once the leads were noted to be functioning appropriately, then these were sutured into place with 0 Ti-Cron. We then affixed the leads to the pacemaker and this was placed in the subcutaneous pouch. This was sutured to the pectoral fascia using a single interrupted 0 Ti-Cron. We then irrigated out the wound with antibiotic solution. The subcutaneous tissues were reapproximated with interrupted 3-0 Vicryl and the skin was closed with running subcutaneous 5-0 Monocryl. COMPLICATIONS: None. CONDITION: Stable. ANESTHESIA: Local MAC. BLOOD LOSS: Minimal. TRANSINT:[id number] Voice Confirmation ID: [id number] DOCUMENT ID: [id number] OPERATIVE REPORT [id number] MICHAEL TREJO BOAZ RODRIGUEZ MD at 1110 CC: [id number] DICTATION DATE: 04/04/18 1417 TEAMSITE DEVELOPER: 04/04/18 1435 DIS IN 04/05/18 [facility] [address] [place] [address]
--- NOTE | ~2018-04-01 | HEMODYNAMI ---
PATIENT:MICHAEL TREJO MEDICAL RECORD: [id number] : 31 LOCATION:[facility] D.2114 [facility]# [id number] ADMISSION DATE: 04/01/18 Generatedon:04/04/201814:18 Patient name: MICHAEL TREJO Patient #: [id number] SSN: [id number] : 1930 Date of study: 04/04/2018 Page: Of Hemodynamic Procedure Report Patient Data Patient Demographics Procedure consent was obtained First Name: MICHAEL Gender: Male Last Name: NEIL : 1930 Middle Initial: W Age: 87 year(s) Patient #: [id number] Race: Unknown SSN: [id number] Additional ID: [id number] Contact details Address: [address] [place] [address] [address] State: [place] City: [place] Zip code: [address] Past Medical History Allergies: No known allergies Admission Admission Data Admission Date: 04/01/2018 Admission Time: 13:49 Admit Source: Other Room #: D.2114 Lab Results Lab Result Date: 04/04/2018 Lab Result Time: 4:10 Biochemistry Name Units Result Min Max BUN mg/dl 19 --(----)*- 7 18 Creatinine mg/dl 1.4 --(----)*- 0.6 1.3 CBC Name Units Result Min Max Hematocrit % 32.3 *-(----)-- 42 54 Hemoglobin g/dl 10.4 *-(----)-- 13.5 17.5 Procedure Procedure Types Cath Procedure Diagnostic Procedure PPM/ICD PPM Dual Implant Sedation Charges Moderate Sedation up to 15 minutes Moderate Sedation up to 30 minutes Procedure Description Procedure Date Procedure Date: 04/04/2018 Procedure Start Time: 13:49 Procedure End Time: 14:17 Procedure Staff Name Function Boaz Bishop MD Assisting physician Bryan Meyers MD Performing Physician Rio Prasad RT Scrub Rose Estevez RT Monitor Bryson Vázquez RN Nurse Procedure Data Cath Procedure Fluoroscopy Diagnostic fluoroscopy Total fluoroscopy Time: 1.3 time: 1.3 min min Diagnostic fluoroscopy Total fluoroscopy dose: 115 dose: 115 mGy mGy Estimated blood loss: 10 ml Procedure Complications No complications Procedure Medications Medication Administration Route Dosage 0.9% NaCl I.V. 100 ml/hr Oxygen etCO2 Nasal cannula 2 l/min Lidocaine 1% with added to field 20 ml Epi Bupivacaine 0.5% added to field 10 ml Ancef (1Gm/50ml NS) I.V.P.B 1 g Ancef Irrigation Topical 1 g (1gm/500ml NS) Versed I.V. 2 mg Fentanyl I.V. 100 mcg Hemodynamics Rest HGB: 10.4 (g/dl) Pre Cath Intra NCS Post Cath Vital Signs Time Heart Resp SPO2 etCO2 NIBP (mmHg) Rhythm Pain Sedation Rate (ipm) (%) (mmHg) Status Level (bpm) 13:45:03 55 15 95 11.2 140/59(101) NSR 0 (11) 10(A) , No pain 13:49:23 54 15 98 19.5 119/55(91) NSR 0 (11) 10(A) , No pain 13:53:23 282 16 98 12 111/64(79) NSR 0 (11) 9(A) , No pain 13:57:12 59 15 98 18 125/75(112) NSR 0 (11) 9(A) , No pain 14:01:20 61 18 94 0 128/70(100) NSR 0 (11) 10(A) , No pain 14:05:32 58 13 95 0 133/61(105) Paced 0 (11) 10(A) , No pain 14:10:35 62 13 94 0 142/63(114) Paced 0 (11) 10(A) , No pain 14:14:51 75 14 0 142/69(114) Paced 0 (11) 10(A) , No pain Medications Time Medication Route Dose Verified Delivered Reason Notes Effectiv eness by by 13:42:40 0.9% NaCl I.V. 100 Bryson Bryson Per ml/hr Gurpreet Vázquez physician RN RN 13:42:51 Oxygen etCO2 2 Bryson Bryson used for Nasal l/min Gurpreet Vázquez procedure cannula RN RN 13:43:02 Lidocaine added 20 ml Bryson Bryson for local 1% with Epi to Lorigan Lorigan anesthetic field RN RN 13:43:20 Bupivacaine added 10 ml Bryson Bryson for local 0.5% to Lorigan Lorigan anesthetic field RN RN 13:43:32 Ancef I.V.P.B 1 g Bryson Bryson Per (1Gm/50ml Lorigan Lorigan physician NS) RN RN 13:43:46 Ancef Topical 1 g Bryson Bryson used for Irrigation Lorigan Lorigan procedure (1gm/500ml RN RN NS) 13:49:23 Versed I.V. 2 mg Bryson Bryson for Lorigan Lorigan sedation RN RN 13:49:31 Fentanyl I.V. 100 Brysno Bryson for mcg Lorigan Lorigan sedation RN supervisor [employer] Log Time Note 12:57:41 Informed consent obtained and on chart 12:57:43 Admit Source: Other 12:58:16 Diagnostic Cath status Elective 12:58:17 Time tracking: Regular hours (M-F 7:00 - 5:00) 12:58:17 Bryson Vázquez RN sent for patient. Start room use. 12:58:21 Plan of Care:Hemodynamics will remain stable., Cardiac rhythm will remain stable., Comfort level will be maintained., Respiratory function will remain adequate., Patient/ family verbilizes understanding of procedure., Procedure tolerated without complication., Recovers from procedure without complications.. 12:58:34 H&P Date Dictated: 04/01/2018 Within 30 days and on chart.. 12:58:50 Patient allergic to No known allergies 12:58:56 Lab results completed and on chart. 12:59:23 Lab Result : Hemoglobin 10.4 g/dl 12:59:23 Lab Result : Hematocrit 32.3 % 12:59:23 Lab Result : BUN 19 mg/dl 12:59:23 Lab Result : Creatinine 1.4 mg/dl 13:01:46 Use device set JENNIFER PPM 13:06:26 Patient received from Med II to CCL 3 Alert and oriented. Tansferred to table in Supine position. 13:06:27 Correct patient and procedure confirmed by team. 13:06:27 Warm blankets applied, and kris hugger turned on for patient comfort. 13:06:28 ECG and BP/O2 sat monitors applied to patient. 13:37:42 Pre-procedure instructions explained to patient. 13:37:45 Family in patients room. 13:37:47 Patient NPO since Midnight. 13:37:50 Is the patient allergic to Iodine/contrast media? No. 13:37:52 Was the patient premedicated? Yes 13:37:53 Is patient on blood thinner?No 13:37:57 Patient diabetic? Yes. 13:37:58 If diabetic: On Metformin? No 13:38:02 Snore? Yes 13:38:04 Sleep apnea? No 13:38:08 Dentures? No ? 13:38:20 IV patent on arrival in left forearm with 0.9% NaCl at [facility]. 13:38:36 Left chest area was prepped with chlora-prep and draped in sterile fashion 13:38:38 Alarms reviewed by R. N. 13:38:39 Sharps counted by scrub and verified by R.N. 13:38:43 Physician paged 13:40:20 Medtronic Advisa MRI PPM Dual Generator [id number] opened to sterile field. 13:40:23 Medtronic 4574-53 PPM Lead opened to sterile field. 13:40:24 Medtronic 4074-58 PPM Lead opened to sterile field. 13:42:40 0.9% NaCl 100 ml/hr I.V. was administered by Bryson Vázquez RN; Per physician; 13:42:51 Oxygen 2 l/min etCO2 Nasal cannula was administered by Bryson Vázquez RN; used for procedure; 13:43:02 Lidocaine 1% with Epi 20 ml added to field was administered by Bryson Vázquez RN; for local anesthetic; 13:43:20 Bupivacaine 0.5% 10 ml added to field was administered by Bryson Vázquez RN; for local anesthetic; 13:43:32 Ancef (1Gm/50ml NS) 1 g I.V.P.B was administered by Bryson Vázquez RN; Per physician; 13:43:46 Ancef Irrigation (1gm/500ml NS) 1 g Topical was administered by Bryson Vázquez RN; used for procedure; 13:43:56 Vital chart was started 13:46:39 Physician arrived 13:47:00 --------ALL STOP TIME OUT------ 13:47:03 Final Timeout: patient, procedure, and site verified with staff and physician. All members of the team are in agreement. 13:47:08 Left chest site verified by team. 13:47:12 Physical assessment completed. ASA score P 2 - A patient with mild systemic disease as per Bryan Meyers MD. 13:47:17 Sedation plan: IV Moderate Sedation Medication:Versed, Fentanyl 13:48:55 Procedure started. 13:48:55 Full Disclosure recording started 13:49:15 Medtronic charter representative PEÑA present for procedure. 13:49:22 Grounding pad site Left thigh. 13:49:23 Versed 2 mg I.V. was administered by Bryson Vázquez RN; for sedation; 13:49:25 Grounding pad site free from injury. 13:49:31 Fentanyl 100 mcg I.V. was administered by Bryson Vázquez RN; for sedation; 13:49:34 Lidocaine 1% w/epi and Bupivacaine 0.5% was administered to left subclavicular area by Boaz Bishop MD . 13:50:25 Pre sharps counted by scrub and verified by RN: Sutures: 14; Sponges: 20; Stick needles: 4; Skin needles: 2; Blade: 1; Cautery: 1 13:51:32 Incision made to left subclavicular area. 13:52:30 Generator pocket made/opened. 13:55:20 Left subclavian vein accessed with 9Fr Peel Away Sheath. 13:57:45 Ventricular lead inserted and advanced. 13:57:52 Left subclavian vein accessed with 9Fr Peel Away Sheath. 13:57:56 Atrial lead inserted and advanced. 13:57:58 Peel-a-way sheath was split and removed. 13:58:01 Peel-a-way sheath was split and removed. 14:00:54 Ventricular lead positioned. 14:01:25 Ventricular lead tested. 14:01:59 Atrial lead positioned. 14:03:21 Atrial lead tested. 14:03:25 PPM Dual was attached to lead(s) and inserted into pocket. 14:03:31 PPM Dual was inserted subcutaneously to left chest. 14:05:36 Ventricular lead attachment was completed with 2-0 silk. 14:05:43 Atrial lead attachment was completed with 2-0 silk. 14:06:01 Generator was sutured in place with 2-0 silk. 14:07:55 Parameters-- Generator: Mode: AAIR=DDDR. Lower Rate: 60bpm. Upper Rate: 120bpm. 14:08:44 Parameters--Ventricular P/R Wave: 9.6mV. Current: .3mA; Threshold: .6V; Impedence: 1756OHMS. 14:09:17 Parameters--Atrial P/R Wave: 3.2mV. Current: .1mA; Threshold: .4V; Impedence: 522OHMS. 14:09:22 Lt Chest incision was dressed with Mepilex dressing. 14:09:55 Procedure ended.(Physican Out) 14:10:20 Fluoroscopy time 01.30 minutes. 14:10:26 Fluoroscopy dose: 115 mGy 14:10: Flurop Dose total: 115 14:10:29 Sharps counted by scrub and verified by R.N. 14:10:53 Insertion/operative site no bleeding no hematoma. 14:11:03 Post-op/insertion site Left Subclavian vein dressed using a 4 x 4 and Tegaderm. 14:11:06 Post Procedure Pulses reassessed and unchanged 14:11:12 Post-procedure physical assessment completed. ASA score P 2 - A patient with mild systemic disease as per Bryan Meyers MD. 14:11:18 Post procedure rhythm: paced 14:11:21 Estimated blood loss: 10 ml 14:11:27 Post procedure instruction explained to patient.Patient verbalizes understanding. 14:12:08 Procedure type changed to Cath procedure, Diagnostic procedure, PPM/ICD, PPM Dual Implant, Sedation Charges, Moderate Sedation up to 15 minutes, Moderate Sedation up to 30 minutes 14:12:10 Procedure and supply charges have been captured, reviewed, submitted and are correct. 14:12:47 Procedure Complication : No complications 14:17:20 Vital chart was stopped 14:17:34 Patient transfered to [facility] with Bed. 14:17:36 Procedure ended. 14:17:36 Full Disclosure recording stopped 14:17:40 End room use (Document Last) 14:17:40 End room use (Document Last) Device Usage Item Name Manufacture Quantity Catalog Hospital Part Current Minimal Lot# / Number Charge Number Stock Stock Serial# Code Medtronic Medtronic 1 [id number] [id number] Advisa [id number] MRI PPM EXP. Dual 05-06 Generator A2DR01 Medtronic Medtronic 1 4574-53 [id number] 5 4574-53 [id number] PPM Lead EXP.0 12-21-2019 Medtronic Medtronic 1 4074-58 [id number] 5 4074-58 [id number] 8627V PPM Lead EXP. 06/16/2018 Signature Audit [place] Stage Time Signature Unsigned Intra-Procedure 04/04/2018 Rose Estevez 2:18:10 PM RT(R) Signatures Monitor : Rose Estevez Signature : RT Date : Time : [address] [place] [address]
--- NOTE | ~2018-04-01 | OP ---
PATIENT NAME: MICHAEL TREJO MEDICAL RECORD: [id number] :31 LOCATION:D.M2 D.2114 ADMISSION DATE:04/01/18 SURGEON: WANG RIGGINS MD DATE OF OPERATION: 04/04/2018 PROCEDURE: Lead portion of permanent pacemaker placement. INDICATION: Sick sinus syndrome, PAF and pauses. SURGEON: Boaz Bishop MD DESCRIPTION OF PROCEDURE: After left subclavian vein was cannulated via modified Seldinger technique via Dr. Bishop. First under fluoroscopic guidance, I placed RV lead in RV apex without difficulty. Next, under fluoroscopic guidance, I placed right atrial lead in right atrial appendage without difficulty. After P waves and thresholds were obtained, the leads were attached to appropriate poles of the generator and the pocket was closed via Dr. Bishop. IMPRESSION: Successful lead portion of permanent pacemaker placement. ESTIMATED BLOOD LOSS: Minimal. COMPLICATIONS: None. DISPOSITION: To the floor, stable. TRANSINT:[id number] Voice Confirmation ID: [id number] DOCUMENT ID: [id number] WANG RIGGINS MD at 1254 CC: [id number] DICTATION DATE: 04/04/18 1408 COMPUTER SYSTEMS DESIGN ANALYST: 04/04/18 1430 DIS IN 04/05/18 [facility] [address] [place] [address]
[2018-04-01 12:00] VITALS: BP 103/41
[2018-04-01 12:24] LABS: BASOPHILS 0.6 % (0-2); EOSINOPHILS 2.8 % (0-7); HEMATOCRIT 32.4 % (42.0-54.0); HEMOGLOBIN 10.4 g/dL (13.5-17.5); IMMATURE GRANULOCYTES 0.6 % (0-5); LYMPHOCYTES 24.8 % (15-50); MCH 28.9 pg (26.0-34.0); MCHC 32.1 g/dL (31.0-37.0); MEAN PLATELET VOLUME 10.4 fL (7.4-10.4); MONOCYTES 7.6 % (2-11); NEUTROPHILS 63.6 % (40-80); PLATELET COUNT 126 10x3/uL (130-400); RDW 13.9 % (11.5-14.5); WBC 5.4 10x3/uL (4.8-10.8)
[2018-04-01 12:58] LABS: ALBUMIN 3.2 g/dL (3.4-5.0); ALKALINE PHOSPHATASE 82 U/L (46-116); ALT (SGPT) 12 U/L (10-68); BILIRUBIN - TOTAL 0.66 mg/dL (0.2-1.3); CALC OSMOLALITY 285 mosm/kg (275-300); CALCIUM 8.1 mg/dL (8.5-10.1); CARBON DIOXIDE 23.6 mmol/L (21.0-32.0); CHLORIDE - SERUM 109 mmol/L (98-107); CREATINE KINASE 103 UL (21-232); CREATININE - SERUM 1.5 mg/dL (0.6-1.3); GLUCOSE 143 mg/dL (74-106); LIPASE 167 U/L (73-393); MAGNESIUM - SERUM 1.7 mg/dL (1.8-2.4); POTASSIUM - SERUM 4.8 mmol/L (3.5-5.1); PRO BNP 512 pg/mL (0-450); PROTEIN - SERUM 5.9 g/dL (6.4-8.2); SODIUM 141 mmol/L (136-145); UREA NITROGEN 22 mg/dL (7-18); eGFR NON AFRICAN AMERICAN 47 mL/min (90-120)
[2018-04-01 13:00] VITALS: BP 110/46
[2018-04-01 13:00] LABS: TROPONIN-I < 0.017 ng/mL (0.000-0.060)
[2018-04-01 14:00] VITALS: BP 122/48
[2018-04-01 15:00] VITALS: BP 128/48
[2018-04-01 17:13] VITALS: BP 153/61; Ht 185.4 cm; Wt 89.4 kg
[2018-04-01 21:12] VITALS: BP 151/52
[2018-04-02 00:50] LABS: HEMATOCRIT 32.7 % (42.0-54.0); HEMOGLOBIN 10.5 g/dL (13.5-17.5)
[2018-04-02 02:11] VITALS: BP 155/56
[2018-04-02 04:31] LABS: BASOPHILS 0.3 % (0-2); EOSINOPHILS 3.2 % (0-7); HEMOGLOBIN 10.9 g/dL (13.5-17.5); IMMATURE GRANULOCYTES 0.5 % (0-5); LYMPHOCYTES 26.1 % (15-50); MCH 28.7 pg (26.0-34.0); MCHC 32.1 g/dL (31.0-37.0); MCV 89.5 fL (80.0-100.0); MEAN PLATELET VOLUME 10.2 fL (7.4-10.4); MONOCYTES 7.6 % (2-11); NEUTROPHILS 62.3 % (40-80); PLATELET COUNT 121 10x3/uL (130-400); RDW 13.7 % (11.5-14.5); WBC 6.3 10x3/uL (4.8-10.8)
[2018-04-02 04:52] LABS: % SATURATION 18 % (15-55); IRON 56 ug/dl (35-150); TOTAL IRON BIND CAPACITY 296 ug/dl (260-445); UNSAT IRON BIND CAPACITY 240 ug/dl (150-375)
[2018-04-02 04:57] LABS: ALBUMIN 3.1 g/dL (3.4-5.0); BILIRUBIN - TOTAL 0.59 mg/dL (0.2-1.3); CALCIUM 8.4 mg/dL (8.5-10.1); CARBON DIOXIDE 27.9 mmol/L (21.0-32.0); CREATININE - SERUM 1.4 mg/dL (0.6-1.3); MAGNESIUM - SERUM 1.9 mg/dL (1.8-2.4); POTASSIUM - SERUM 4.9 mmol/L (3.5-5.1); PROTEIN - SERUM 5.8 g/dL (6.4-8.2)
[2018-04-02 06:12] VITALS: BP 160/64
[2018-04-02 18:39] VITALS: BP 131/48
[2018-04-02 20:00] VITALS: BP 172/52
[2018-04-02 23:57] VITALS: BP 139/46
[2018-04-03 04:00] VITALS: BP 114/81
[2018-04-03 05:42] LABS: BASOPHILS 0.6 % (0-2); EOSINOPHILS 3.2 % (0-7); HEMATOCRIT 34.8 % (42.0-54.0); HEMOGLOBIN 10.9 g/dL (13.5-17.5); IMMATURE GRANULOCYTES 0.3 % (0-5); LYMPHOCYTES 25.4 % (15-50); MCH 28.3 pg (26.0-34.0); MCHC 31.3 g/dL (31.0-37.0); MCV 90.4 fL (80.0-100.0); MEAN PLATELET VOLUME 10.1 fL (7.4-10.4); MONOCYTES 11.1 % (2-11); NEUTROPHILS 59.4 % (40-80); PLATELET COUNT 118 10x3/uL (130-400); RBC 3.85 10x6/uL (4.20-6.10); RDW 14.1 % (11.5-14.5); WBC 6.3 10x3/uL (4.8-10.8)
[2018-04-03 06:39] LABS: ANION GAP 11.1 mmol/L (8-16); BILIRUBIN - TOTAL 0.53 mg/dL (0.2-1.3); CALCIUM 8.1 mg/dL (8.5-10.1); CARBON DIOXIDE 26.2 mmol/L (21.0-32.0); CREATININE - SERUM 1.4 mg/dL (0.6-1.3); MAGNESIUM - SERUM 1.7 mg/dL (1.8-2.4); POTASSIUM - SERUM 4.3 mmol/L (3.5-5.1); PROTEIN - SERUM 5.7 g/dL (6.4-8.2)
[2018-04-03 20:00] VITALS: BP 137/79
[2018-04-04] VITALS: BP 144/52
[2018-04-04 04:00] VITALS: BP 149/44
[2018-04-04 05:03] LABS: BASOPHILS 0.5 % (0-2); HEMATOCRIT 32.3 % (42.0-54.0); HEMOGLOBIN 10.4 g/dL (13.5-17.5); IMMATURE GRANULOCYTES 0.3 % (0-5); LYMPHOCYTES 22.1 % (15-50); MCH 28.7 pg (26.0-34.0); MCHC 32.2 g/dL (31.0-37.0); MCV 89.2 fL (80.0-100.0); MEAN PLATELET VOLUME 10.3 fL (7.4-10.4); MONOCYTES 11.1 % (2-11); PLATELET COUNT 101 10x3/uL (130-400); RBC 3.62 10x6/uL (4.20-6.10); WBC 6.4 10x3/uL (4.8-10.8)
[2018-04-04 05:53] LABS: ANION GAP 11.2 mmol/L (8-16); BILIRUBIN - TOTAL 0.64 mg/dL (0.2-1.3); CARBON DIOXIDE 24.9 mmol/L (21.0-32.0); CREATININE - SERUM 1.4 mg/dL (0.6-1.3); MAGNESIUM - SERUM 1.6 mg/dL (1.8-2.4); POTASSIUM - SERUM 4.1 mmol/L (3.5-5.1); PROTEIN - SERUM 5.7 g/dL (6.4-8.2)
[2018-04-04 09:39] VITALS: BP 121/64
[2018-04-04 12:32] VITALS: BP 147/53
[2018-04-04 13:33] LABS: % SATURATION 7 % (15-55); IRON 21 ug/dl (35-150); TOTAL IRON BIND CAPACITY 276 ug/dl (260-445); UNSAT IRON BIND CAPACITY 255 ug/dl (150-375)
[2018-04-04 17:05] VITALS: BP 127/78
[2018-04-04 20:36] VITALS: BP 162/60
[2018-04-05 04:59] VITALS: BP 120/45
[2018-04-05 06:04] LABS: BASOPHILS 0.3 % (0-2); EOSINOPHILS 2.2 % (0-7); HEMATOCRIT 33.1 % (42.0-54.0); HEMOGLOBIN 10.8 g/dL (13.5-17.5); IMMATURE GRANULOCYTES 0.3 % (0-5); LYMPHOCYTES 18.8 % (15-50); MCH 29.1 pg (26.0-34.0); MCHC 32.6 g/dL (31.0-37.0); MCV 89.2 fL (80.0-100.0); MEAN PLATELET VOLUME 9.8 fL (7.4-10.4); MONOCYTES 10.1 % (2-11); NEUTROPHILS 68.3 % (40-80); PLATELET COUNT 104 10x3/uL (130-400); RBC 3.71 10x6/uL (4.20-6.10); RDW 13.9 % (11.5-14.5); WBC 6.5 10x3/uL (4.8-10.8)
[2018-04-05 06:24] LABS: ALBUMIN 2.7 g/dL (3.4-5.0); ANION GAP 12.2 mmol/L (8-16); BILIRUBIN - TOTAL 0.61 mg/dL (0.2-1.3); CALCIUM 7.8 mg/dL (8.5-10.1); CARBON DIOXIDE 25.2 mmol/L (21.0-32.0); CREATININE - SERUM 1.4 mg/dL (0.6-1.3); MAGNESIUM - SERUM 1.6 mg/dL (1.8-2.4); POTASSIUM - SERUM 4.4 mmol/L (3.5-5.1); PROTEIN - SERUM 5.6 g/dL (6.4-8.2)
[2018-04-05 07:39] VITALS: BP 135/78
[2018-04-05 09:19] LABS: FOLATE (FOLIC ACID) - SERUM >20.0 ng/mL (>3.0)
[2018-04-05 11:51] VITALS: BP 137/55
== END 2018-04-05 13:16 | disposition home or self-care (01) | DRG 243 ==
LOC: D.ER 11:30 → D.M2 13:49
PROVIDERS: Family Medicine; Family Medicine Adult Medicine; Internal Medicine Gastroenterology; Internal Medicine Interventional Cardiology; Internal Medicine Nephrology
PROC: 02H63JZ Insertion of Pacemaker Lead into Right Atrium, Percutaneous Approach (ICD-10-PCS; 2018-04-04)
PROC: 02HK3JZ Insertion of Pacemaker Lead into Right Ventricle, Percutaneous Approach (ICD-10-PCS; 2018-04-04)
PROC: 0JH606Z Insertion of Pacemaker, Dual Chamber into Chest Subcutaneous Tissue and Fascia, Open Approach (ICD-10-PCS; principal; 2018-04-04 12:58)
DX: I49.5 Sick sinus syndrome (principal); K92.2 Gastrointestinal hemorrhage, unspecified; B37.0 Candidal stomatitis; R00.1 Bradycardia, unspecified; E11.9 Type 2 diabetes mellitus without complications; Z79.01 Long term (current) use of anticoagulants; I25.10 Atherosclerotic heart disease of native coronary artery without angina pectoris; I10 Essential (primary) hypertension; F03.90 Unspecified dementia, unspecified severity, without behavioral disturbance, psychotic disturbance, mood disturbance, and anxiety

== ENCOUNTER → 2018-06-24 08:11 | Outpatient (CLI) | payer MEDICARE ==
[2018-04-01 17:13] VITALS: BMI 27.1
== END | disposition home or self-care (01) ==
LOC: D.LAB 08:11 → D.RAD 08:30
DX: R19.7 Diarrhea, unspecified (principal); Z86.010 Personal history of colon polyps; Z80.0 Family history of malignant neoplasm of digestive organs; R63.4 Abnormal weight loss

== ENCOUNTER 2018-08-31 09:26 | Inpatient (IN) | payer MEDICARE ==
[~2018-08-31] VITALS: Ht 185.4 cm; Wt 93.6 kg
[2018-08-31] VITALS (9 sets, daily range): BP systolic 103–142; BP diastolic 49–72; Ht 185.4 cm; Wt 93.6 kg
--- NOTE | ~2018-08-31 | EC ---
PATIENT:MICHAEL TREJO DATE OF SERVICE: 08/31/18 SEX: M MEDICAL RECORD: [id number] DATE OF : [birth year] LOCATION:D.M2 D.211 AGE OF PATIENT: 88 ADMISSION DATE: 08/31/18 REFERRING PHYSICIAN: INTERPRETING PHYSICIAN: WANG RIGGINS MD ECHOCARDIOGRAM REPORT ECHO CHARGES 4 ECHO COMPLETE Date: 09/01/18 CLINICAL DIAGNOSIS: ATRIAL FIB WITH RVR, HX OF PACEMAKER ECHOCARDIOGRAPHIC MEASUREMENTS (adult normal given) AC root (d.<3.7cm) 2.9 cm LV Septum d (<1.2 cm> 1.3 cm Valve Excursion 1.3 cm LV Septum (systole) 1.8 cm Left Atria (s.<4.0cm> 4.2 cm LVPW d(<1.2cm) 1.6 cm RV (d.<2.3cm) 4.9 cm LVPW (sytole) 2.1 cm LV diastole(<5.6CM) 5.3 cm MV E-F(>70mm/sec) cm LV systole 3.7 cm LVOT Diameter 1.8 cm MV exc.(>10mm) 1.6 cm Est.ejection fraction (50-75%) % DOPPLER: LVIT cm/sec A 36.0 cm/sec E 98.0 cm/sec LA cm/sec RVSP 36 mmHg LVOT 90 cm/sec AOP1/2T m/s Asc. Ao 111 cm/sec RVOT 79 cm/sec RA cm/sec PA 96 cm/sec AV Gradient Peak 4.94 mmHg AV Mean 2.46 mmHg AV Area 1.7 cm MV Gradient Peak 8.95 mmHg MV Mean 2.52 mmHg MV Area cm COMMENTS: Sports Book Writer: 2 RIZWANA DEAN Mri Supervisor: 3 Dr. Doherty TAPE# PACS Pericardial Effusion N DATE OF SERVICE: 09/01/2018 Adequate 2-D echo, color flow and spectral Doppler, and M-Mode. LVH is present. LV internal dimensions are normal. Wall motion is normal. EF is greater than or equal to 55%. Aortic valve sclerosis without stenosis by Doppler interrogation. Left atrium is mildly dilated at 4.2 cm. Mitral valve shows no prolapse, mild MR. Right-sided chambers are grossly normal. Mild TR. TRANSINT:[id number] Voice Confirmation ID: [id number] DOCUMENT ID: [id number] ECHOCARDIOGRAM REPORT [id number] MICHAEL TREJO GREGORY A MD CC: [id number] DICTATION DATE: 09/01/18 1312 ENGLISH TUTOR: 09/01/18 1412 DIS IN 09/01/18 [facility] [address] [place] [place] [id number]
[~2018-08-31 09:26] MED LIST changes: -DIABETA1.25 MG PO; +GLYBURIDE5 M1 PO
[2018-08-31] MEDS ORDERED: TIROSINT112 MCG PO (09:50)
[2018-08-31] MEDS ORDERED: NITROSTAT0.4 MG SL (09:55)
[2018-08-31] MEDS ORDERED: EXELON1 PATCH .2 TRANSDERM (09:55)
[2018-08-31 10:15] LABS: APPEARANCE CLEAR (CLEAR); BILIRUBIN NEGATIVE (NEGATIVE); COLOR YELLOW (YELLOW); GLUCOSE NEGATIVE (NEGATIVE); KETONE NEGATIVE (NEGATIVE); NITRITE NEGATIVE (NEGATIVE); PROTEIN NEGATIVE (NEGATIVE); UROBILINOGEN NORMAL (NORMAL)
[2018-08-31 10:33] LABS: BASOPHILS 0.9 % (0-2); EOSINOPHILS 2.6 % (0-7); IMMATURE GRANULOCYTES 0.5 % (0-5); LYMPHOCYTES 22.9 % (15-50); MCH 29.9 pg (26.0-34.0); MCHC 33.3 g/dL (31.0-37.0); MCV 89.7 fL (80.0-100.0); MEAN PLATELET VOLUME 10.3 fL (7.4-10.4); MONOCYTES 7.1 % (2-11); RBC 4.35 10x6/uL (4.20-6.10); RDW 14.4 % (11.5-14.5); WBC 7.6 10x3/uL (4.8-10.8)
[2018-08-31 10:34] LABS: PLATELET COUNT 126 10x3/uL (130-400)
[2018-08-31 10:43] LABS: ALBUMIN 3.5 g/dL (3.4-5.0); ALKALINE PHOSPHATASE 98 U/L (46-116); ALT (SGPT) 15 U/L (10-68); APTT 27.9 SECONDS (22.8-39.4); BILIRUBIN - TOTAL 0.55 mg/dL (0.2-1.3); CALC OSMOLALITY 288 mosm/kg (275-300); CALCIUM 9.3 mg/dL (8.5-10.1); CARBON DIOXIDE 26.6 mmol/L (21.0-32.0); CHLORIDE - SERUM 102 mmol/L (98-107); CREATININE - SERUM 1.9 mg/dL (0.6-1.3); GLUCOSE 201 mg/dL (74-106); INR 1.01 (0.85-1.17); POTASSIUM - SERUM 4.5 mmol/L (3.5-5.1); PROTEIN - SERUM 6.8 g/dL (6.4-8.2); PROTIME 12.8 SECONDS (11.6-15.0); SODIUM 139 mmol/L (136-145); UREA NITROGEN 27 mg/dL (7-18); eGFR NON AFRICAN AMERICAN 36 mL/min (90-120)
[2018-08-31 10:54] LABS: CKMB 2.6 U/L (0.0-3.6); CREATINE KINASE 154 UL (21-232); MAGNESIUM - SERUM 1.6 mg/dL (1.8-2.4); PRO BNP 7051 pg/mL (0-450)
[2018-08-31 10:55] LABS: TROPONIN-I < 0.017 ng/mL (0.000-0.060)
--- NOTE | 2018-08-31 11:02 | NUR ---
PT STABLE, AT BEDSIDE, CALL LIGHT WITHIN REACH, DENIES NEEDS, WILL CONTINUE TO MONITOR.
--- NOTE | 2018-08-31 13:00 | NUR ---
DIABETIC TRAY ORDERED FOR PT. PT STABLE,CALL LIGHT WITHIN REACH, DENIES NEEDS, WILL CONTINUE TO MONITOR. AT BEDSIDE.
--- NOTE | 2018-08-31 14:00 | NUR ---
PT STABLE, CALL LIGHT WITHIN REACH, DENIES NEEDS, AT BEDSIDE, WILL CONTINUE TO MONITOR.
--- NOTE | 2018-08-31 14:08 | MORECARE ---
CASE MANAGEMENT DISCHARGE SUMMARY PATIENT: MICHAEL TREJO UNIT: [id number] ADM DATE: 08/31/18 AGE: 88 : 31 SEX: M ROOM/BED: D.2116 AUTHOR: GIA PICHARDO PHYSICIAN: REFERRING PHYSICIAN: MANDY WHEATLEY MD DATE OF SERVICE: 08/31/18 Discharge Plan Patient Name: MICHAEL TREJO Facility: [facility]:[place] : 1930 Planned Disposition: Anticipated Discharge Date: Discharge Date: Expected LOS: Initial Reviewer: [email or web address] Initial Review Date: 08/31/2018 Generated: 08/31/18 3:08 pm DCP- Discharge Planning Updated by [email or web address]: Delmy Varma on 08/31/18 1:[address] CM met with patient in ER, regarding dc needs/plans. Patient arrived from home. Permission obtained to speak with , Maria Trejo--states patient has Dementia. Patient answers all questions appropriately and spouse agrees to same. No steps entering home. PCP: Dr. Lars Avila. Pharmacy: [facility]. DME: cane (states uses it only for long walks). Patient states his sets up his medication box. Emergency contact: Maria Skylar #[phone]. Denies use of community resources or [facility]. Denies being hospitalized within past 30 days, plans to return to his home and denies need of additional services upon dc. CM will assist as needed with dc needs/plans PRN. Delmy Varma RN CM DCPIA - Discharge Planning Initial Assessment Updated by [email or web address]: Delmy Varma on 08/31/18 2:07 pm * Is the patient Alert and Oriented? Yes * How many steps to enter\exit or inside your home? * PCP Dr. Lars Avila * [facility] w/mail-off * Preadmission Environment Home with Family * ADLs Partial Dependent * Partial ADLs (Assistance needed) Medication Management * Equipment Cane * Other Equipment None * List name and contact numbers for known caregivers / representatives who currently or will assist patient after discharge: Maria Trejo (spouse) [phone] * Verbal permission to speak to the caregivers and representatives has been obtained from the patient. Yes * Community resources currently utilized None * Please name any agencies selected above. None * Additional services required to return to the preadmission environment? No * Can the patient safely return to the preadmission environment? Yes * Has this patient been hospitalized within the prior 30 days at any hospital? No Patient Name: MICHAEL TREJO Page [phone] at 1408 All edits/amendments must be made on the electronic document DICTATION DATE: 08/31/181406 BINDERY ASSISTANT: ALEJANDRINA 08/31/181406 RPT#: [id number] DC DATE: STATUS: ADM IN [facility] [address] [place] [address] END OF REPORT
--- NOTE | 2018-08-31 14:54 | NUR ---
CALLED REPORT TO ROSALBA. PT STABLE, CALL LIGHT WITHIN REACH, DENIES NEEDS, AT BEDSIDE. ROOM IS STILL NOT CLEAN. ROSALBA WILL CALL WHEN ROOM IS CLEAN. WILL CONTINUE TO MONITOR.
--- NOTE | 2018-08-31 15:25 | NUR ---
PT TRANSPORTED TO ROOM VIA WHEELCHAIR AT THIS TIME. NURSE ROSALBA ROOM 0371. PT STABLE AT TRANSPORT.
--- NOTE | 2018-08-31 15:28 | NUR ---
TRANSFER FROM ER BY W/C. FABIANOINTED TO ROOM. CALL LIGHT IN REACH. WILL CONT. PLAN OF CARE.
--- NOTE | 2018-08-31 20:31 | NUR ---
RESUMED CARE, SITTING IN CHAIR RESPIRATIONS EVEN AND UNLABORED ON ROOM AIR. RIGHT FOREARM INFUSING CARDIZEM @ 10. 66 CAF ON TELEMETRY. NO NEEDS VOICED AT THIS TIME, CALL LIGHT IN REACH. SEE NURSE ASSESSMENT.
[2018-09-01] VITALS: BP 106/57
[2018-09-01 04:00] VITALS: BP 93/48
[2018-09-01 06:22] LABS: HEMATOCRIT 32.5 % (42.0-54.0); HEMOGLOBIN 11.2 g/dL (13.5-17.5); LYMPHOCYTES 27.9 % (15-50); MCH 30.5 pg (26.0-34.0); MCHC 34.5 g/dL (31.0-37.0); MCV 88.6 fL (80.0-100.0); MEAN PLATELET VOLUME 10.2 fL (7.4-10.4); NEUTROPHILS 65.4 % (40-80); PLATELET COUNT 120 10x3/uL (130-400); RBC 3.67 10x6/uL (4.20-6.10); RDW 14.6 % (11.5-14.5); WBC 6.1 10x3/uL (4.8-10.8)
[2018-09-01 06:49] LABS: ALBUMIN 2.8 g/dL (3.4-5.0); ANION GAP 14.3 mmol/L (8-16); BILIRUBIN - TOTAL 0.37 mg/dL (0.2-1.3); CALCIUM 7.9 mg/dL (8.5-10.1); CARBON DIOXIDE 24.1 mmol/L (21.0-32.0); CREATININE - SERUM 1.5 mg/dL (0.6-1.3); POTASSIUM - SERUM 4.4 mmol/L (3.5-5.1); PROTEIN - SERUM 5.4 g/dL (6.4-8.2)
[2018-09-01] MEDS ORDERED: BETAPACE 80 MG80 MG PO (08:26)
[2018-09-01 09:30] VITALS: BP 104/59
--- NOTE | 2018-09-01 09:45 | MORECARE ---
CASE MANAGEMENT DISCHARGE SUMMARY PATIENT: MICHAEL TREJO UNIT: [id number] ADM DATE: 08/31/18 AGE: 88 : 31 SEX: M ROOM/BED: D.2116 AUTHOR: MARINO,DOC PHYSICIAN: REFERRING PHYSICIAN: MANDY WHEATLEY MD DATE OF SERVICE: 09/01/18 Discharge Plan Patient Name: MICHAEL TREJO Facility: [facility]:[place] : 1930 Planned Disposition: Home Anticipated Discharge Date: 09/01/18 Discharge Date: Expected LOS: 1 Initial Reviewer: [email or web address] Initial Review Date: 08/31/2018 Generated: 09/01/18 10:45 am DCP- Discharge Planning Updated by [email or web address]: Delmy Varma on 08/31/18 1:[address] CM met with patient in ER, regarding dc needs/plans. Patient arrived from home. Permission obtained to speak with , Maria Trejo--states patient has Dementia. Patient answers all questions appropriately and spouse agrees to same. No steps entering home. PCP: Dr. Lars Avila. Pharmacy: [facility]. DME: cane (states uses it only for long walks). Patient states his sets up his medication box. Emergency contact: Maria Trejo #[phone]. Denies use of community resources or [facility]. Denies being hospitalized within past 30 days, plans to return to his home and denies need of additional services upon dc. CM will assist as needed with dc needs/plans PRN. Delmy Varma RN, CM DCPIA - Discharge Planning Initial Assessment Updated by [email or web address]: Delmy Varma on 08/31/18 2:07 pm * Is the patient Alert and Oriented? Yes * How many steps to enter\exit or inside your home? * PCP Dr. Lars Avila * [facility] w[facility] * Preadmission Environment Home with Family * ADLs Partial Dependent * Partial ADLs (Assistance needed) Medication Management * Equipment Cane * Other Equipment None * List name and contact numbers for known caregivers / representatives who currently or will assist patient after discharge: Maria Trejo (spouse) [phone] * Verbal permission to speak to the caregivers and representatives has been obtained from the patient. Yes * Community resources currently utilized None * Please name any agencies selected above. None * Additional services required to return to the preadmission environment? No * Can the patient safely return to the preadmission environment? Yes * Has this patient been hospitalized within the prior 30 days at any hospital? No Last DP export: 08/31/18 1:08 pm Patient Name: MICHAEL TREJO Page [phone] at 0945 All edits/amendments must be made on the electronic document DICTATION DATE: 09/01/18944 DEALERSHIP MANAGER: ALEJANDRINA 09/01/18944 RPT#: [id number] DC DATE: STATUS: ADM IN [facility] [address] [place] [address] END OF REPORT
--- NOTE | 2018-09-01 10:54 | NUR ---
IV AND TELEMETRY DCD. DC PLANS GIVEN. UNDERSTANDING VOICED. ESCORTED TO CAR BY W/C.
== END 2018-09-01 10:55 | disposition home or self-care (01) | DRG 310 ==
LOC: D.ER 09:26 → D.EDHOLD 12:52 → D.M2 13:49
PROVIDERS: Family Medicine; ADMIT Family Medicine
DX: I48.91 Unspecified atrial fibrillation (principal); E11.22 Type 2 diabetes mellitus with diabetic chronic kidney disease; I12.9 Hypertensive chronic kidney disease with stage 1 through stage 4 chronic kidney disease, or unspecified chronic kidney disease; N18.9 Chronic kidney disease, unspecified; F03.90 Unspecified dementia, unspecified severity, without behavioral disturbance, psychotic disturbance, mood disturbance, and anxiety; Z95.0 Presence of cardiac pacemaker; E86.0 Dehydration

== ENCOUNTER 2018-09-06 17:21 | Observation (INO) | payer MEDICARE ==
[~2018-09-06] VITALS: Ht 185.4 cm; Wt 96.8 kg
[~2018-09-06 17:21] MED LIST changes: +BETAPACE 80 MG80 MG PO; +EXELON1 PATCH .2 TRANSDERM; +NITROSTAT0.4 MG SL; +TIROSINT112 MCG PO
[2018-09-06 17:45] LABS: BASOPHILS 0.8 % (0-2); EOSINOPHILS 3.8 % (0-7); HEMATOCRIT 34.4 % (42.0-54.0); HEMOGLOBIN 11.5 g/dL (13.5-17.5); IMMATURE GRANULOCYTES 0.5 % (0-5); LYMPHOCYTES 28.1 % (15-50); MCH 29.8 pg (26.0-34.0); MCHC 33.4 g/dL (31.0-37.0); MCV 89.1 fL (80.0-100.0); MEAN PLATELET VOLUME 10.1 fL (7.4-10.4); MONOCYTES 7.5 % (2-11); NEUTROPHILS 59.3 % (40-80); PLATELET COUNT 130 10x3/uL (130-400); RBC 3.86 10x6/uL (4.20-6.10); RDW 14.6 % (11.5-14.5)
--- NOTE | 2018-09-06 17:45 | NUR ---
STROKE [facility] NUMBER [id number]
--- NOTE | 2018-09-06 17:54 | NUR ---
SPOKE WITH [facility] AT THIS TIME. WAS TOLD BY EMANI AT CALL CENTER THAT DUE TO PATIENT'S SYMPTOMS RESOLVING THIS PATIENT IS NOT A CANDIDATE FOR [facility]/TPA AT THIS TIME AND AN EXAM IS NOT REQUIRED. NOTIFIED DR. ANGEL SANTIAGO
[2018-09-06 18:05] LABS: ALBUMIN 3.4 g/dL (3.4-5.0); ANION GAP 11.9 mmol/L (8-16); APTT 31.6 SECONDS (22.8-39.4); BILIRUBIN - TOTAL 0.39 mg/dL (0.2-1.3); CALCIUM 8.3 mg/dL (8.5-10.1); CREATININE - SERUM 1.4 mg/dL (0.6-1.3); INR 1.08 (0.85-1.17); POTASSIUM - SERUM 3.9 mmol/L (3.5-5.1); PROTEIN - SERUM 6.6 g/dL (6.4-8.2); PROTIME 13.5 SECONDS (11.6-15.0)
--- NOTE | 2018-09-06 18:58 | NUR ---
REPORT GIVEN TO SUMI MICHEL AT THIS TIME.
[2018-09-06 19:49] VITALS: BP 146/68
--- NOTE | 2018-09-06 19:51 | NUR ---
PT REQUESTED URINAL. UP AT BEDSIDE AD ZEE. NO DEFICITS NOTED AT THIS TIME RESP EVEN AND UNLABORED CALL LIGHT IN REACH
[2018-09-06 20:18] LABS: CKMB 3.2 U/L (0.0-3.6); CREATINE KINASE 141 UL (21-232); TROPONIN-I < 0.017 ng/mL (0.000-0.060)
[2018-09-06 23:04] VITALS: BP 151/67
--- NOTE | 2018-09-06 23:05 | NUR ---
GAVE 2 BLANKETS RETRIEVED RECLINING CHAIR FOR . DENIES PAIN. NOT DEFICITS NOTED. RESTING IN ROOM QUIETLY AT THIS TIME RESP EVEN AND UNLABORED
[2018-09-07 00:01] LABS: CKMB 2.3 U/L (0.0-3.6); CREATINE KINASE 104 UL (21-232); TROPONIN-I < 0.017 ng/mL (0.000-0.060)
--- NOTE | 2018-09-07 00:41 | NUR ---
assisted pt to restroom, ambulated withstand by assistance
--- NOTE | 2018-09-07 01:53 | NUR ---
PT REFUSES TO WEAR BP CUFF, SPO2 MONITOR STATES IT HURTS HER. NOTIFIED PROVIDER.
[2018-09-07 03:00] VITALS: BP 155/75
[2018-09-07 06:31] VITALS: BP 164/77
[2018-09-07 07:26] LABS: CKMB 2.1 U/L (0.0-3.6); CREATINE KINASE 101 UL (21-232); TROPONIN-I < 0.017 ng/mL (0.000-0.060)
[2018-09-07 08:24] LABS: % SATURATION 18 % (15-55); IRON 53 ug/dl (35-150); TOTAL IRON BIND CAPACITY 280 ug/dl (260-445); UNSAT IRON BIND CAPACITY 227 ug/dl (150-375)
[2018-09-07 08:40] LABS: ALBUMIN 3.1 g/dL (3.4-5.0); ANION GAP 14.2 mmol/L (8-16); BILIRUBIN - TOTAL 0.45 mg/dL (0.2-1.3); CALCIUM 8.2 mg/dL (8.5-10.1); CARBON DIOXIDE 25.6 mmol/L (21.0-32.0); CREATININE - SERUM 1.4 mg/dL (0.6-1.3); MAGNESIUM - SERUM 1.7 mg/dL (1.8-2.4); POTASSIUM - SERUM 3.8 mmol/L (3.5-5.1)
[2018-09-07 11:29] VITALS: BP 145/58; BMI 27.2
[2018-09-07 11:58] LABS: APPEARANCE CLEAR (CLEAR); COLOR STRAW (YELLOW)
[2018-09-07 11:59] LABS: BILIRUBIN NEGATIVE (NEGATIVE); GLUCOSE NEGATIVE (NEGATIVE); KETONE NEGATIVE (NEGATIVE); NITRITE NEGATIVE (NEGATIVE); PROTEIN NEGATIVE (NEGATIVE); UROBILINOGEN NORMAL (NORMAL)
[2018-09-07 13:02] LABS: CKMB 2.4 U/L (0.0-3.6); CREATINE KINASE 97 UL (21-232); TROPONIN-I < 0.017 ng/mL (0.000-0.060)
[2018-09-07 14:13] VITALS: BP 141/62; BMI 27.1
--- NOTE | 2018-09-07 14:13 | NUR ---
NEW ADMIT FROM ER. CALL LIGHT IN REACH. WILL CONT. PLAN OF CARE.
--- NOTE | 2018-09-07 15:13 | MORECARE ---
CASE MANAGEMENT DISCHARGE SUMMARY PATIENT: MICHAEL TREJO UNIT: [id number] ADM DATE: 09/06/18 AGE: 88 : 31 SEX: M ROOM/BED: D.2130 AUTHOR: GIA PICHARDO PHYSICIAN: REFERRING PHYSICIAN: MICH AMOR MD DATE OF SERVICE: 09/07/18 Discharge Plan Patient Name: MICHAEL TERJO Facility: [facility]:[place] : 1930 Planned Disposition: Anticipated Discharge Date: Discharge Date: Expected LOS: Initial Reviewer: [email or web address] Initial Review Date: 09/06/2018 Generated: 09/07/18 4:13 pm Coverage Notice Reviewer: [email or web address] - Liz Morrison Notice Issued Date-Time: 09/07/2018 15:04 Notice Type: Medicare Outpatient Observation Notice Notice Delivered To: Patient Relationship to Patient: Self Cake Cutter Machine Name: Delivery Method: HAND - Hand Delivered Paz Days: Prior Verbal Notification: Recipient Understood Notice: Yes Recipient Signature: Yes Med Rec Note Co-signed by Attending: Coverage Notice Comment: DISCUSSED THE VYAS IN THE PRESENCE OF HIS , LISA TREJO, AFTER VERBAL PERMISSION OBTAINED. Patient Name: MICHAEL TREJO Page [phone] at 1513 All edits/amendments must be made on the electronic document DICTATION DATE: 09/07/181512 ABRASIVE GRADER: ALEJANDRINA 09/07/18 151 RPT#: [id number] [place] DATE: STATUS: ADM IN [facility] [address] [place] [address] END OF REPORT
[2018-09-07 15:37] VITALS: BP 141/62
--- NOTE | 2018-09-07 16:39 | EC ---
PATIENT:MICHAEL TREJO DATE OF SERVICE: 09/06/18 SEX: M MEDICAL RECORD: [id number] DATE OF : [birth year] LOCATION:D.M2 D.213 AGE OF PATIENT: 88 ADMISSION DATE: 09/06/18 REFERRING PHYSICIAN: INTERPRETING PHYSICIAN: KRISTI LYNN MD ECHOCARDIOGRAM REPORT ECHO CHARGES 4 ECHO COMPLETE Date: 09/07/18 CLINICAL DIAGNOSIS: CHF ECHOCARDIOGRAPHIC MEASUREMENTS (adult normal given) AC root (d.<3.7cm) 0 cm LV Septum d (<1.2 cm> 0 cm Valve Excursion 0 cm LV Septum (systole) 0 cm Left Atria (s.<4.0cm> 0 cm LVPW d(<1.2cm) 0 cm RV (d.<2.3cm) 0 cm LVPW (sytole) 0 cm LV diastole(<5.6CM) 0 cm MV E-F(>70mm/sec) 0 cm LV systole 0 cm LVOT Diameter 0 cm MV exc.(>10mm) 0 cm Est.ejection fraction (50-75%) 0 % DOPPLER: LVIT 0 cm/sec A 0 cm/sec E 0 cm/sec LA 0 cm/sec RVSP 30.0 mmHg LVOT 0 cm/sec AOP1/2T 0 m/s Asc. Ao 0 cm/sec RVOT 0 cm/sec RA 0 cm/sec PA 0 cm/sec AV Gradient Peak 0 mmHg AV Mean 0 mmHg AV Area 0 cm MV Gradient Peak 0 mmHg MV Mean 0 mmHg MV Area 0 cm COMMENTS: LIMITED STUDY (2-D,COLOR,DOPPLER) COMPLETE ECHO DONE ON 09/01/18 Business Test Analyst: Marcelino POMPA Food And Nutrition Teacher: 1 Dr. Lynn TAPE# PACS Pericardial Effusion N DATE OF SERVICE: LIMITED ECHOCARDIOGRAM INDICATION: Rule out cardiac source of neurologic emboli. FINDINGS: 1. Left ventricular chamber size is within normal limits. Left ventricular systolic function is normal. Overall ejection fraction is estimated at 60%. 2. No evidence of cardiac source of neurologic emboli. ECHOCARDIOGRAM REPORT [id number] MICHAEL TREJO TRANSINT:[id number] Voice Confirmation ID: [id number] DOCUMENT ID: [id number] KRISTI LYNN MD at 1634 CC: [id number] DICTATION DATE: 09/07/18 1229 CONTROL OPERATOR FLOW COAT: 09/07/18 1422 ADM IN [facility] [address] [place] [id number]
--- NOTE | 2018-09-07 17:34 | NUR ---
WITHOUT CHANGES OR DISTRESS NOTED AT THIS THIS TIME. DENIES NEEDS.
[2018-09-07 17:42] VITALS: Ht 185.4 cm; Wt 96.8 kg
[2018-09-07 19:13] LABS: CKMB 2.3 U/L (0.0-3.6); CREATINE KINASE 105 UL (21-232); TROPONIN-I < 0.017 ng/mL (0.000-0.060)
[2018-09-07 21:09] VITALS: BP 184/82
--- NOTE | 2018-09-07 23:37 | NUR ---
LYING IN BED WITH CALL LIGHT IN REACH. WILL CONTINUE TO MONITOR.
[2018-09-08] VITALS: BP 145/56
[2018-09-08 04:00] VITALS: BP 119/61
[2018-09-08 05:36] LABS: BASOPHILS 1.2 % (0-2); EOSINOPHILS 3.3 % (0-7); HEMATOCRIT 31.2 % (42.0-54.0); HEMOGLOBIN 10.5 g/dL (13.5-17.5); IMMATURE GRANULOCYTES 0.2 % (0-5); LYMPHOCYTES 34.8 % (15-50); MCH 29.9 pg (26.0-34.0); MCHC 33.7 g/dL (31.0-37.0); MCV 88.9 fL (80.0-100.0); MEAN PLATELET VOLUME 10.4 fL (7.4-10.4); MONOCYTES 8.5 % (2-11); PLATELET COUNT 112 10x3/uL (130-400); RBC 3.51 10x6/uL (4.20-6.10); RDW 14.6 % (11.5-14.5)
[2018-09-08 05:40] LABS: WBC 4.2 10x3/uL (4.8-10.8)
[2018-09-08 05:50] LABS: ANION GAP 12.7 mmol/L (8-16); CARBON DIOXIDE 26.5 mmol/L (21.0-32.0); CHOL - HDL RATIO 3.3 ratio (2.3-4.9); CREATININE - SERUM 1.3 mg/dL (0.6-1.3); LDL-HDL RATIO 0.5 ratio (1.5-3.5); MAGNESIUM - SERUM 1.7 mg/dL (1.8-2.4); POTASSIUM - SERUM 4.2 mmol/L (3.5-5.1)
[2018-09-08 07:49] VITALS: BP 153/66
--- NOTE | 2018-09-08 08:39 | NUR ---
PT RESTING IN BED WITH FAMILY AT BEDSIDE. NO ACUTE DISTRESS NOTED AT THIS TIME. DENIES PAIN. IV TO RIGHT FOREARM WITH NS @ 50 ML/HR INFUSING VIA PUMP. SITE WITHOUT REDNESS OR EDEMA. DENIES FURTHER NEEDS AT THIS TIME. CL WITHIN REACH. ENCOURAGED TO CALL WITH NEEDS. CONTINUE POC
[2018-09-08 09:19] LABS: FOLATE (FOLIC ACID) - SERUM >20.0 ng/mL (>3.0)
[2018-09-08] MEDS ORDERED: ELIQUIS5 MG PO (12:47)
--- NOTE | 2018-09-08 15:21 | NUR ---
PT DISCHARGE INSTRUCTIONS GIVEN TO PT AND SPOUSE. VOICES UNDERSTANDING OF PRESCRIPTIONS CALLED INTO [facility] [address] AND FOLLOW UP APTS. DENIES QUESTIONS OF ATERCARE INSTRUCTIONS. SALINE LOC D/C'D FROM RIGHT FOREARM, CATH INTACT, PRESSURE HELD TO PREVENT BLEEDING. PT TAKEN OUT VIA W/C TO PRIVATE VEHICLE WITH PERSONAL BELONGINGS.
--- NOTE | 2018-09-09 08:31 | MORECARE ---
CASE MANAGEMENT DISCHARGE SUMMARY PATIENT: MICHAEL TREJO UNIT: [id number] ADM DATE: 09/06/18 AGE: 88 : 31 SEX: M ROOM/BED: D.2130 AUTHOR: GIA PICHARDO PHYSICIAN: REFERRING PHYSICIAN: MICH AMOR MD DATE OF SERVICE: 09/09/18 Discharge Plan Patient Name: MICHAEL TREJO Facility: [facility]:[place] : 1930 Planned Disposition: Home Anticipated Discharge Date: 09/08/18 Discharge Date: 09/08/2018 Expected LOS: 2 Initial Reviewer: [email or web address] Initial Review Date: 09/06/2018 Generated: 09/09/18 9:31 am Coverage Notice Reviewer: [email or web address] Lola Morrison Notice Issued Date-Time: 09/07/2018 15:04 Notice Type: Medicare Outpatient Observation Notice Notice Delivered To: Patient Relationship to Patient: Self Environmental Conservation Officer Name: Delivery Method: HAND - Hand Delivered Paz Days: Prior Verbal Notification: Recipient Understood Notice: Yes Recipient Signature: Yes Med Rec Note Co-signed by Attending: Coverage Notice Comment: DISCUSSED THE VYAS IN THE PRESENCE OF HIS , LISA TREJO, AFTER VERBAL PERMISSION OBTAINED. Last DP export: 09/07/18 2:13 p Patient Name: MICHAEL TREJO Page [phone] at 0831 All edits/amendments must be made on the electronic document DICTATION DATE: 09/09/18830 ELECTRICIAN RADIO: ALEJANDRINA 09/09/18830 RPT#: [id number] DC DATE:09/08/18 STATUS: DIS IN [facility] [address] [place] [address] END OF REPORT
== END 2018-09-08 15:24 | disposition home or self-care (01) ==
LOC: D.ER 17:21 → D.EDHOLD 18:51 → D.M2 18:51 → OBSVTIME 18:52 → D.M2 09-07 13:01
PROVIDERS: Emergency Medicine; ADMIT Internal Medicine Nephrology
DX: I63.233 Cerebral infarction due to unspecified occlusion or stenosis of bilateral carotid arteries (principal); I25.10 Atherosclerotic heart disease of native coronary artery without angina pectoris; I48.91 Unspecified atrial fibrillation; Z79.01 Long term (current) use of anticoagulants; F03.90 Unspecified dementia, unspecified severity, without behavioral disturbance, psychotic disturbance, mood disturbance, and anxiety; E11.9 Type 2 diabetes mellitus without complications; I10 Essential (primary) hypertension; Z95.0 Presence of cardiac pacemaker; Z87.891 Personal history of nicotine dependence; E03.9 Hypothyroidism, unspecified; E78.5 Hyperlipidemia, unspecified; D50.9 Iron deficiency anemia, unspecified; N17.9 Acute kidney failure, unspecified

== ENCOUNTER → 2018-12-23 13:50 | Outpatient (CLI) | payer MEDICARE ==
[2018-09-07 17:42] VITALS: BMI 27.1
[~2018-12-23 13:50] MED LIST changes: +ELIQUIS5 MG PO
== END | disposition home or self-care (01) ==
LOC: D.US 13:50
PROVIDERS: ATTEND Internal Medicine Cardiovascular Disease
DX: I65.23 Occlusion and stenosis of bilateral carotid arteries (principal)

== ENCOUNTER 2019-12-14 11:34 | Outpatient (CLI) | payer MEDICARE ==
[~2019-12-14] VITALS: Ht 185.4 cm; Wt 100.9 kg
--- NOTE | ~2019-12-14 | HEMODYNAMI ---
PATIENT:MICHAEL TREJO MEDICAL RECORD: [id number] : 32 LOCATION:DLUCRETIA ADMISSION DATE: 12/14/19 Generatedon:12/14/201914:11 Patient name: MICHAEL TREJO Patient #: [id number] SSN: [id number] : 1930 Date of study: 12/14/2019 Page: Of Hemodynamic Procedure Report Patient Data Patient Demographics Procedure consent was obtained First Name: MICHAEL Gender: Male Last Name: NEIL : 1930 Middle Initial: W Age: 89 year(s) Patient #: [id number] Race: Unknown SSN: [id number] Additional ID: [id number] Contact details [address]: [address] [place] [address] [address]IVE State: [place] City: [place] Zip code: [address] Past Medical History Allergies Allergen Reaction Date Comments Reported Other allergy 12/14/2019 MARCOS KELLEY Admission Admission Data Admission Date: 12/14/2019 Admission Time: 11:34 Procedure Procedure Types Cath Procedure Diagnostic Procedure Cardioversion External JUNIOR Procedure Description Procedure Date Procedure Date: 12/14/2019 Procedure Start Time: 13:34 Procedure Staff Name Function Bryan Meyers MD Performing Physician Noris Nunn RT Monitor Rose Estevez RT Monitor Gloria Husain RN Nurse Parveen Valadez CRNA Additional personnel Harper Albrecht Carpenter [employer]le [employer] Procedure Data Cath Procedure Fluoroscopy Diagnostic fluoroscopy Total fluoroscopy Time: 0 time: 0 min min Diagnostic fluoroscopy Total fluoroscopy dose: 0 dose: 0 mGy mGy Estimated blood loss: 0 ml Procedure Complications No complications Procedure Medications Medication Administration Route Dosage 0.9% NaCl I.V. 100 ml/hr Oxygen etCO2 Nasal cannula 2 l/min Hurricaine Smith P.O. 2 Sprays Refer to Anesthesia Notes for Sedation Medications Hemodynamics Rest Heart Rate: 86 (bpm) Snapshots Pre Cath Intra NCS Post Cath Vital Signs Time Heart Resp SPO2 etCO2 NIBP (mmHg) Rhythm Pain Sedation Rate (ipm) (%) (mmHg) Status Level (bpm) 13:51:19 70 38 95 28 124/112(121) A-Fib 0 (11) 10(A) , No pain 13:55:37 64 20 100 32.6 120/61(99) A-Fib 0 (11) 10(A) , No pain 14:00:36 60 24 100 11.1 83/38(65) A-Fib 0 (11) 5(A) , No pain 14:03:09 67 18 99 14.8 103/54(82) Paced 0 (11) 5(A) , No pain 14:07:21 68 19 98 25.2 104/54(72) Paced 0 (11) 10(A) , No pain 14:10:17 0 No Cuff Paced 0 (11) 10(A) , No pain Medications Time Medication Route Dose Verified Delivered Reason Notes Effectiv eness by by 13:51:01 0.9% NaCl I.V. 100 Bryan Castro used for ml/hr [place] [facility] procedure MD MICHEL 13:51:08 Oxygen etCO2 2 Bryan Castro used for Nasal l/min [place] [facility] procedure cannula MD MICHEL 13:51:29 Hurricaine P.O. 2 Bryan Castro used for Smith Sprays [facility] procedure MD MICHEL 13:51:35 Refer to Bryan Adams for Anesthesia [facility] sedation Notes for MD NAVA Sedation Medications Procedure Log Time Note 13:35:13 Informed consent obtained and on chart 13:36:49 Procedure Status Cardioversion, JUNIOR. 13:36:51 Time tracking: Regular hours (M-F 7:00 - 5:00) 13:36:57 Plan of Care:Hemodynamics will remain stable., Cardiac rhythm will remain stable., Comfort level will be maintained., Respiratory function will remain adequate., Patient/ family verbilizes understanding of procedure., Procedure tolerated without complication., Recovers from procedure without complications.. 13:37:01 Gloria Husain RN sent for patient. Start room use. 13:46:14 Patient arrived from Pre/Post Procedure Room to CCL 1. Patient remains on bed/stretcher for procedure. 13:46:15 Warm blankets applied, and kris hugger turned on for patient comfort. 13:46:16 Correct patient and procedure confirmed by team. 13:46:16 ECG and BP/O2 sat monitors applied to patient. 13:48:33 H&P Date Dictated: 12/14/2019 Within 30 days and on chart.. 13:48:36 Pre-procedure instructions explained to patient. 13:48:37 Pre-op teaching completed and patient verbalized understanding. 13:48:40 Patient NPO since Midnight. 13:49:38 Family AVAILABLE WITH PHONE CALL 13:50:06 Patient allergic to Other allergyXARELTO, ELIQUIS 13:50:10 Vital chart was started 13:50:12 Full Disclosure recording started 13:50:18 Rhythm: atrial fibrillation 13:50:26 Is patient on blood thinner?Yes 13:50:29 ACC The patient was administered the following blood thiners within the last 24 hours: ACCPlavix 13:50:30 Patient diabetic? Yes. 13:50:32 If diabetic: On Metformin? Unknown 13:50:35 Previous problem with sedation/anesthesia? No ? 13:50:36 Snore? Yes 13:50:38 Sleep apnea? Yes 13:50:39 Deviated septum? No 13:50:40 Opens mouth fully? Yes 13:50:41 Sticks out tongue? Yes 13:50:43 Airway obstruction? No ? 13:50:44 Dentures? No ? 13:50:53 IV patent on arrival in left hand with 0.9% NaCl at [facility]. 13:51:01 0.9% NaCl 100 ml/hr I.V. was administered by Gloria Husain RN; used for procedure; Verbal order read back and verified. 13:51:02 Lab results completed and on chart. 13:51:05 Alarms reviewed by R. N. 13:51:08 Oxygen 2 l/min etCO2 Nasal cannula was administered by Gloria Husain RN; used for procedure; Verbal order read back and verified. 13:51:29 Hurricaine Smith 2 Sprays P.O. was administered by Gloria Husain RN; used for procedure; Verbal order read back and verified. 13:51:30 Parveen Valadez CRNA present and monitoring patient for TIVA. 13:51:35 Refer to Anesthesia Notes for Sedation Medications was administered by Bryan Meyers MD; for sedation; Verbal order read back and verified. 13:51:40 Quick Combo opened to sterile field. 13:52:03 Baseline sample Acquired. 13:52:12 --------ALL STOP TIME OUT------ 13:52:13 Final Timeout: patient, procedure, and site verified with staff and physician. All members of the team are in agreement. 13:52:20 Fire Safety Assessment: C--Open oxygen or nitrous oxide is being used. 13:52:23 Physical assessment completed. ASA score P 2 - A patient with mild systemic disease as per Bryan Meyers MD. 13:52:27 Sedation plan: TIVA Medication:Propofol 13:55:17 JUNIOR 13:55:33 Harper Laurier Test Driver present for JUNIOR. 13:57:43 JUNIOR started. 14:01:30 JUNIOR completed. 14:01:32 ------Cardioversion------ 14:01:36 Quick combo pads placed on patients chest and back. 14:01:41 Defibrillator synced and charged to 200 Joules. 14:01:56 Shock delivered. 14:02:14 Patient cardioverted to sinus rhythm , paced. 14:02:29 Procedure ended.(Physican Out) 14:07:16 Fluoroscopy time 00.00 minutes. 14:07:17 Fluoroscopy dose: 0 mGy 14:07:17 Flurop Dose total: 0 14::27 Post-procedure physical assessment completed. ASA score P 2 - A patient with mild systemic disease as per Bryan Meyers MD. 14:07:30 Post procedure rhythm: sinus rhythm , paced 14:07:32 Estimated blood loss: 0 ml 14:07:33 Post procedure instruction explained to patient.Patient verbalizes understanding. 14:07:34 Patient needs reinforcement of post procedure teaching. 14:07:48 Procedure and supply charges have been captured, reviewed, submitted and are correct. 14:07:52 Procedure Complication : No complications 14:07:58 JUNIOR Findings: JUNIOR w/ cardioversion: no left atrial clot noted (proceed with cardioversion) 14:07:59 Operative report dictated upon procedure completion. 14:07:59 See physician's report for complete and final results. 14:08:01 Report given to Pre/Post Procedure Room. 14:08:05 Patient transfered to Pre/Post Procedure Room with Bed. 14:10:03 Vital chart was stopped 14:10:22 End room use (Document Last) 14:10:31 End room use (Document Last) 14:10:47 End room use (Document Last) Device Usage Item Manufacture Quantity Catalog Hospital Part Current Minimal Lot# / Name Number Charge Number Stock Stock Juju olivia# Code [employer] 1 [id number] Combo Signature Audit [place] Stage Time Signature Unsigned Intra-Procedure 12/14/2019 Noris Nunn 2:10:31 PM RT(R) Intra-Procedure 12/14/2019 Gloria Husain 2:10:47 PM RN Intra-Procedure 12/14/2019 Bryan Saleh 2:11:02 PM Uzair NAVA [facility] [address] [place] [address]
[2019-12-14] MEDS ORDERED: PLAVIX75 MG PO (12:00)
[2019-12-14] MEDS ORDERED: GLIMEPIRIDE4 MG PO (12:01)
[2019-12-14] MEDS ORDERED: ISOSORBIDE MONO30 M1 PO (12:01)
[2019-12-14] MEDS ORDERED: NYSTATIN15 GM TOPICAL (12:02)
[2019-12-14] MEDS ORDERED: ISOSORBIDE MONO60 M1 PO (12:04)
[2019-12-14] MEDS ORDERED: DILTIAZEM 24HR120 M3 PO (12:05)
[2019-12-14 12:36] VITALS: BP 106/58; Ht 185.4 cm; Wt 100.9 kg
[2019-12-14 12:37] LABS: BASOPHILS 0.6 % (0-2); EOSINOPHILS 4.1 % (0-7); HEMATOCRIT 33.6 % (42.0-54.0); IMMATURE GRANULOCYTES 0.6 % (0-5); LYMPHOCYTES 33.1 % (15-50); MCH 29.8 pg (26.0-34.0); MCHC 32.7 g/dL (31.0-37.0); MCV 91.1 fL (80.0-100.0); MEAN PLATELET VOLUME 10.2 fL (7.4-10.4); MONOCYTES 9.8 % (2-11); NEUTROPHILS 51.8 % (40-80); RBC 3.69 10x6/uL (4.20-6.10); RDW 14.4 % (11.5-14.5); WBC 5.1 10x3/uL (4.8-10.8)
[2019-12-14 12:45] LABS: INR 1.03 (0.85-1.17); PROTIME 13.5 SECONDS (11.6-15.0)
[2019-12-14 12:46] LABS: ANION GAP 7.1 mmol/L (8-16); CALCIUM 8.5 mg/dL (8.5-10.1); CARBON DIOXIDE 24.5 mmol/L (21.0-32.0); CREATININE - SERUM 1.8 mg/dL (0.6-1.3); POTASSIUM - SERUM 4.6 mmol/L (3.5-5.1)
[2019-12-14 13:24] LABS: PLATELET COUNT 137 10x3/uL (130-400)
--- NOTE | 2019-12-14 14:16 | NUR ---
PT ARRIVED BY STRETCHER. PLACED ON MONITORS. ASSESSMENT COMPLETED. VSS. PT IN SINUS BRADYCARDIA. V-PACED AT A RATE OF 60. PT'S AT BEDSIDE.
--- NOTE | 2019-12-14 14:30 | NUR ---
PT RESTING COMFORTABLY. AT BEDSIDE. PT STILL IN SINUS V-PACED RHYTHM. MORE ALERT AT THIS TIME. NO NEEDS.
--- NOTE | 2019-12-14 15:00 | NUR ---
PT STILL IN SR V-PACED. RATE 60. NO S/S OF DISTRESS NOTED. PIV D/C'D WITH CATH TIP INTACT. TOLERATED WELL. PT INSTRUCTED TO GET DRESSED. AT BEDSIDE TO ASSIST.
--- NOTE | 2019-12-14 15:20 | NUR ---
PT DRESSED. GIVEN DRINK TO SIP ON. NO SWALLOWING ISSUES NOTED. PT TAKEN DOWN TO VEHICLE BY WHEELCHAIR. NO S/S OF DISTRESS NOTED. ALL BELONGIGNS AND PAPERWORK IN HAND.
--- NOTE | 2019-12-15 09:22 | OP ---
PATIENT NAME: JORDAN TREJO MEDICAL RECORD: [id number] :31 LOCATION:D.CAT ADMISSION DATE: SURGEON: WANG RIGGINS MD DATE OF OPERATION: 12/14/2019 PROCEDURE: Cardioversion. DESCRIPTION OF PROCEDURE: After general sedation via TIVA via anesthesia, a single synchronized shock at 200 joules was successful in restoring atrial fibrillation to normal sinus rhythm. IMPRESSION: Successful cardioversion on Jordan Trejo. COMPLICATIONS: None. During the procedure, the patient was monitored continuously with telemetry, pulse oximetry. TRANSINT:[id number] Voice Confirmation ID: [id number] DOCUMENT ID: [id number] WANG RIGGINS MD at 0922 CC: [id number] DICTATION DATE: 12/14/19 1409 FISH MACHINE FEEDER: 12/14/19 1443 DEP CLI 12/14/[address] [address]
--- NOTE | 2019-12-15 09:22 | TEE ---
PATIENT:MICHAEL TREJO MEDICAL RECORD: [id number] LOCATION:D[facility] AGE OF PATIENT: 89 ADMISSION DATE: 12/14/19 SEX: M REFERRING PHYSICIAN: INTERPRETING PHYSICIAN: WANG RIGGINS MD TRANSESOPHAGEAL ECHOCARDIOGRAM Date: 12/14/19 JUNIOR CHARGE Y INDICATIONS: A-FIB - PRE CARDIOVERSION R/O LA APPENDAGE CLOT PREMEDICATIONS: PATIENT'S RESPONSE PROCEDURE DOPPLER MEASUREMENTS: LVIT LA PA RA LVOT RVOT Asc. Ao AV Gradient Peak AV Mean AV Area MV Gradient Peak MV Mean MV Area INTERPRETATION: Doppler: 2-D: COLOR FLOW DOPPLER NORMAL SALINE STUDY: MISCELLANOUS: DIAGNOSIS: PLAN: Telephone Station Installer:3 Dr. Doherty Voice Writing Reporter: 1 ELVER POMPA COMMENTS: DATE OF SERVICE: 12/14/2019 PROCEDURE: Transesophageal Note DESCRIPTION OF PROCEDURE: After general sedation via TIVA anesthesia, transesophageal Omniplane probe was passed to the distal esophagus and proximal stomach without difficulty. FINDINGS: As follows; LVH is present. LV internal dimension is normal. Wall TRANSESOPHAGEAL ECHOCARDIOGRAM REPORT [id number] MICHAEL TREJO motion is normal. EF is greater than or equal to 55%. Aortic valve is well visualized, tricuspid with good valve excursion. No AI is noted. Left atrium appears normal. Left atrial appendage is well visualized, this shows good fibrillatory waves and no evidence of thrombus. Mitral valve is well visualized with good valve excursion. Trace MR. Right-sided chambers are grossly normal. Trace TR. At the end of the procedure, the transesophageal Omniplane probe was turned posteriorly. This showed minimal atherosclerotic debris in the descending aorta. TRANSINT:[id number] Voice Confirmation ID: [id number] DOCUMENT ID: [id number] at 0922 CC: [id number] DICTATION DATE: 12/14/19 1408 ENVIRONMENTAL WEB CRAWLER: 12/14/19 2321 DEP CLI 12/14/19 [address] [place] [address]
== END 2019-12-14 15:20 | disposition home or self-care (01) ==
LOC: D.CATH 11:34
PROVIDERS: ATTEND Internal Medicine Interventional Cardiology
DX: I48.0 Paroxysmal atrial fibrillation (principal); Z95.0 Presence of cardiac pacemaker; I25.10 Atherosclerotic heart disease of native coronary artery without angina pectoris; I10 Essential (primary) hypertension; G30.9 Alzheimer's disease, unspecified; F02.80 Dementia in other diseases classified elsewhere, unspecified severity, without behavioral disturbance, psychotic disturbance, mood disturbance, and anxiety; E78.5 Hyperlipidemia, unspecified; E11.9 Type 2 diabetes mellitus without complications; Z79.84 Long term (current) use of oral hypoglycemic drugs

== ENCOUNTER → 2019-12-18 09:06 | Outpatient (CLI) | payer MEDICARE ==
[2019-12-14 12:36] VITALS: BMI 29.3
[~2019-12-18 09:06] MED LIST changes: +DILTIAZEM 24HR120 M3 PO; +GLIMEPIRIDE4 MG PO; +ISOSORBIDE MONO60 M1 PO; +NYSTATIN15 GM TOPICAL
== END | disposition home or self-care (01) ==
LOC: D.US 09:00
PROVIDERS: ATTEND Internal Medicine Cardiovascular Disease
DX: I65.23 Occlusion and stenosis of bilateral carotid arteries (principal); I10 Essential (primary) hypertension; E11.9 Type 2 diabetes mellitus without complications

== ENCOUNTER 2020-01-28 11:24 | Emergency (ER) | payer MEDICARE ==
[~2020-01-28] VITALS: Ht 185.4 cm; Wt 95.5 kg
[2020-01-28 11:42] VITALS: Ht 185.4 cm; Wt 95.5 kg
[2020-01-28] MEDS ORDERED: MICONAZOLE NITR28 GM TOPICAL (12:10)
[2020-01-28] MEDS ORDERED: ISOSORBIDE MONO30 M1 PO (12:10)
[2020-01-28] MEDS ORDERED: TRIAMTERENE-HC1 EAC6 PO ×2 (12:11→12:12)
[2020-01-28] MEDS ORDERED: TRULICITY1.5 MG/0.5 SC (12:12)
[2020-01-28 13:43] LABS: BASOPHILS 0.5 % (0-2); EOSINOPHILS 3.3 % (0-7); HEMATOCRIT 36.4 % (42.0-54.0); IMMATURE GRANULOCYTES 0.4 % (0-5); LYMPHOCYTES 31.1 % (15-50); MCH 30.3 pg (26.0-34.0); MCV 91.9 fL (80.0-100.0); MEAN PLATELET VOLUME 9.8 fL (7.4-10.4); MONOCYTES 8.6 % (2-11); NEUTROPHILS 56.1 % (40-80); PLATELET COUNT 117 10x3/uL (130-400); RBC 3.96 10x6/uL (4.20-6.10); RDW 14.3 % (11.5-14.5); WBC 5.5 10x3/uL (4.8-10.8)
[2020-01-28 13:48] LABS: ANION GAP 9.2 mmol/L (8-16); CALCIUM 9.4 mg/dL (8.5-10.1); CARBON DIOXIDE 28.3 mmol/L (21.0-32.0); CREATININE - SERUM 1.6 mg/dL (0.6-1.3); POTASSIUM - SERUM 4.5 mmol/L (3.5-5.1)
[2020-01-28 13:53] LABS: BILIRUBIN NEGATIVE (NEGATIVE); GLUCOSE NEGATIVE (NEGATIVE); KETONE NEGATIVE (NEGATIVE); NITRITE NEGATIVE (NEGATIVE); SPECIFIC GRAVITY 1.015 (1.005-1.020); UROBILINOGEN NORMAL (NORMAL)
[2020-01-28 13:54] LABS: BACTERIA FEW /hpf (NEGATIVE); EPITHELIAL CELLS 0-5 /hpf (0-5); RED CELLS - URINE RARE /hpf (0-5); WHITE CELLS - URINE 0-5 /hpf (NEGATIVE)
[2020-01-28 14:13] LABS: INR 1.02 (0.85-1.17); PROTIME 13.4 SECONDS (11.6-15.0)
[2020-01-28 15:09] VITALS: BP 150/69
== END 2020-01-28 15:09 | disposition home or self-care (01) ==
LOC: D.ER 11:24
PROVIDERS: Family Medicine
DX: N50.1 Vascular disorders of male genital organs (principal); D64.9 Anemia, unspecified; E11.22 Type 2 diabetes mellitus with diabetic chronic kidney disease; E11.65 Type 2 diabetes mellitus with hyperglycemia; I12.9 Hypertensive chronic kidney disease with stage 1 through stage 4 chronic kidney disease, or unspecified chronic kidney disease; N18.9 Chronic kidney disease, unspecified; D69.6 Thrombocytopenia, unspecified; Z86.73 Personal history of transient ischemic attack (TIA), and cerebral infarction without residual deficits; Z79.84 Long term (current) use of oral hypoglycemic drugs

== ENCOUNTER 2020-03-21 11:39 | Observation (INO) | payer MEDICARE ==
[~2020-03-21] VITALS: Ht 185.4 cm; Wt 99.4 kg
[~2020-03-21 11:39] MED LIST changes: +MICONAZOLE NITR28 GM TOPICAL; +TRIAMTERENE-HC1 EAC6 PO; +TRULICITY1.5 MG/0.5 SC
[2020-03-21 12:16] LABS: BASOPHILS 0.9 % (0-2); EOSINOPHILS 3.9 % (0-7); HEMATOCRIT 33.8 % (42.0-54.0); HEMOGLOBIN 11.4 g/dL (13.5-17.5); IMMATURE GRANULOCYTES 0.5 % (0-5); LYMPHOCYTES 27.9 % (15-50); MCH 29.9 pg (26.0-34.0); MCHC 33.7 g/dL (31.0-37.0); MCV 88.7 fL (80.0-100.0); MEAN PLATELET VOLUME 9.5 fL (7.4-10.4); MONOCYTES 9.6 % (2-11); NEUTROPHILS 57.2 % (40-80); PLATELET COUNT 126 10x3/uL (130-400); RBC 3.81 10x6/uL (4.20-6.10); RDW 13.6 % (11.5-14.5); WBC 5.9 10x3/uL (4.8-10.8)
[2020-03-21 12:23] VITALS: BP 114/65
[2020-03-21 12:26] LABS: CALC OSMOLALITY 284 mosm/kg (275-300); CALCIUM 9.1 mg/dL (8.5-10.1); CARBON DIOXIDE 26.9 mmol/L (21.0-32.0); CHLORIDE - SERUM 104 mmol/L (98-107); CREATININE - SERUM 1.9 mg/dL (0.6-1.3); GLUCOSE 156 mg/dL (74-106); POTASSIUM - SERUM 4.7 mmol/L (3.5-5.1); SODIUM 137 mmol/L (136-145); UREA NITROGEN 34 mg/dL (7-18); eGFR NON AFRICAN AMERICAN 36 mL/min (90-120)
[2020-03-21 12:40] LABS: INR 1.04 (0.85-1.17); PROTIME 13.5 SECONDS (11.6-15.0)
[2020-03-21 12:50] LABS: ALBUMIN 3.6 g/dL (3.4-5.0); ALKALINE PHOSPHATASE 84 U/L (30-120); ALT (SGPT) 13 U/L (10-68); BILIRUBIN - TOTAL 0.64 mg/dL (0.2-1.3); CKMB 2.6 U/L (0.0-3.6); CREATINE KINASE 172 UL (21-232); PROTEIN - SERUM 6.4 g/dL (6.4-8.2)
[2020-03-21 12:51] LABS: TROPONIN-I < 0.017 ng/mL (0.000-0.060)
[2020-03-21 14:15] VITALS: BP 157/75
--- NOTE | 2020-03-21 15:37 | NUR ---
RTND FROM [facility]UC MED. VOMITED MOD AMT EMESIS DENIES NAUSEA AFTER.
[2020-03-21 15:38] VITALS: BP 170/83
[2020-03-21 16:47] VITALS: BP 161/83
--- NOTE | 2020-03-21 18:07 | NUR ---
REPORT TO MARILU NAVARRETE
[2020-03-21 18:15] VITALS: BP 145/84
[2020-03-21 18:39] LABS: CKMB 2.9 U/L (0.0-3.6); CREATINE KINASE 175 UL (21-232)
[2020-03-21 18:40] LABS: TROPONIN-I < 0.017 ng/mL (0.000-0.060)
--- NOTE | 2020-03-21 18:40 | NUR ---
ADMIT TO ROOM #2115, CONDITION STABLE
--- NOTE | 2020-03-21 19:39 | NUR ---
PATIENT ARRIVED FROM ER. PATIENT IS ALERT AND ORIENTED X 2. RESPIRATIONS ARE EVEN AND UNLABORED. NO S/S OF DISTRESS. NO C/O PAIN. ATTEMPTED TO DO MED REC. PATIENT WAS UNABLE TO RECALL HOME MEDICATIONS. PATIENT WILL BE RETURNING WILL GO OVER WITH HER. CALL LIGHT WITHIN REACH. WILL CPOC.
[2020-03-21] MEDS ORDERED: ISOSORBIDE MONO60 M1 PO ×2 (22:07→22:10)
[2020-03-22 03:29] LABS: BASOPHILS 0.3 % (0-2); EOSINOPHILS 4.3 % (0-7); HEMATOCRIT 34.8 % (42.0-54.0); HEMOGLOBIN 11.6 g/dL (13.5-17.5); IMMATURE GRANULOCYTES 0.5 % (0-5); LYMPHOCYTES 29.9 % (15-50); MCHC 33.3 g/dL (31.0-37.0); MCV 89.9 fL (80.0-100.0); MEAN PLATELET VOLUME 9.8 fL (7.4-10.4); MONOCYTES 8.3 % (2-11); NEUTROPHILS 56.7 % (40-80); PLATELET COUNT 133 10x3/uL (130-400); RBC 3.87 10x6/uL (4.20-6.10); RDW 13.7 % (11.5-14.5); WBC 6.5 10x3/uL (4.8-10.8)
[2020-03-22 03:43] LABS: CALCIUM 8.9 mg/dL (8.5-10.1); CARBON DIOXIDE 28.6 mmol/L (21.0-32.0); CHLORIDE - SERUM 107 mmol/L (98-107); CREATINE KINASE 148 UL (21-232); CREATININE - SERUM 1.7 mg/dL (0.6-1.3); POTASSIUM - SERUM 4.6 mmol/L (3.5-5.1); SODIUM 139 mmol/L (136-145); UREA NITROGEN 32 mg/dL (7-18); eGFR NON AFRICAN AMERICAN 41 mL/min (90-120)
[2020-03-22 03:46] LABS: CALC OSMOLALITY 284 mosm/kg (275-300); GLUCOSE 94 mg/dL (74-106); TROPONIN-I < 0.017 ng/mL (0.000-0.060)
[2020-03-22 04:00] VITALS: BP 147/68
--- NOTE | 2020-03-22 07:44 | HP ---
PATIENT: MICHAEL TREJO MEDICAL RECORD: [id number] ACCOUNT: [id number] LOCATION:[address] : 31 ADMISSION DATE: 03/21/20 PCP: CONSUELO HUTSON MD HISTORY AND PHYSICAL EXAMINATION REASON FOR ADMISSION: Chest pain, headache, and nausea. HISTORY OF PRESENT ILLNESS: The patient is an 89-year-old male followed by Dr. Lynn in the past, now Dr. Allred with history of paroxysmal atrial fibrillation, post cardioversion this year. His states he has extreme dementia, has been more agitated for the last week or so. He has been having some exertional dyspnea, but no exertional chest pain. Today, while he and his were sitting looking at the meyers, he developed a severe right-sided headache, some nausea, and then broke out in a sweat and complained of precordial chest pain. It lasted about 15 minutes. She put him in the car and drove to the ED. He was still clutching his chest at that time when he arrived. He is now feeling improved after initial treatment in the ED. He cannot give much history due to his dementia. PAST MEDICAL HISTORY: Hypertension; hyperlipidemia; type 2 diabetes mellitus; CAD, status post previous stent placement; PAF, post cardioversion; sick sinus syndrome with pacemaker placement, rate of 18; chronic low back pain; dementia; TIA, 09/06/2018; hypothyroidism; allergic rhinitis; BPH; history of phimosis, post circumcision recently; presbycusis; history of inguinal hernia bilateral; hypogonadism; pancytopenia remotely; retinal detachment. PAST SURGICAL HISTORY: Adenoidectomy; had a penile prosthesis placed; electrocardioversion; carotid endarterectomy; carpal tunnel release; cataract removal, both eyes; bilateral hernia repair; pacemaker placement; history of PTCA; tonsillectomy; recent circumcision; history of EGD with biopsy; laparoscopic cholecystectomy. FAMILY HISTORY: Father at 82 with heart disease. Mother at 82, had diabetes, insulin dependent. Sister at 85, had emphysema. Sister at 75, had emphysema. One sister is living. Two brothers are alive. SOCIAL HISTORY: He is . He is a former smoker, quit in 1979, was a 5-hgds-r-day smoker for 20 years prior to that. Never used smokeless tobacco. No alcohol. EMPLOYMENT HISTORY: He had a [employer] business in [place]. He retired and his family has taken that over. CURRENT MEDICATIONS: Levothyroxine 112 mcg p.o. q.a.m. a.c., clopidogrel 75 mg daily, glimepiride 4 mg 2 tablets by mouth daily with breakfast, multivitamin 1 daily, FiberCon 1 daily, sotalol 80 mg b.i.d., tramadol 50 mg 1 to 2 every 6 hours p.r.n. pain, fexofenadine hydrochlorothiazide 1 daily, Proscar 5 mg daily, Imdur 30 mg extended release daily. REVIEW OF SYSTEMS: GENERAL: He has been somewhat fatigued and with exertional dyspnea for the last week. states he has been more agitated easily. HEENT: No recent visual change, sinus congestion, or sore throat. He does have hearing difficulty. RESPIRATORY: He has had mild rest and exertional dyspnea recently. No cough, HISTORY AND PHYSICAL [id number] TREJOMICHAEL W sputum production, or hemoptysis. CARDIAC: Rest chest pain today. He has had no recent exertional chest pain. Positive for HOWARD. No claudication. GASTROINTESTINAL: Had nausea with headache today. No recent dyspepsia but has history of chronic diarrhea. In fact, 3 different meds for dementia were stopped due to diarrhea. GENITOURINARY: Has nocturia once or twice nightly. ENDOCRINE: Denies polyuria, polydipsia, heat or cold intolerance. NEUROLOGIC: He has had remote TIA and carotid endarterectomy. He has had no history of seizures. He has chronic dementia and poor memory. He drives short distances, but not unaccompanied. states that his mood is somewhat volatile. PHYSICAL EXAMINATION: GENERAL: The patient is pleasant but states he cannot remember what happened today. The patient is oriented and responds to questions somewhat inappropriately, said he just cannot remember anything. He is in no distress. VITAL SIGNS: Show pressure of 112/55, respirations of 16, temperature 97.3 Fahrenheit, pulse 64 and regular, O2 sat is 90% on room air. HEENT: Normocephalic. Eyes are clear with lens implants. Oropharynx unremarkable. NECK: Supple without bruits. CHEST: Clear with distant breath sounds. No wheeze. HEART: Regular rate without murmur. ABDOMEN: Obese, soft, nontender. No organomegaly. GENITOURINARY: Shows recent circumcision. Penile implant port noted. EXTREMITIES: No gross edema. INTEGUMENT: No rash or icterus. PSYCHIATRIC: The patient is oriented to person, but not place and time. He has no motor deficits, but gait was not tested. LABORATORY DATA: Shows a white count of 5900, H&H of 11.4 and 33.8 respectively, platelet count 126,000. BMP is remarkable for BUN and creatinine of 34 and 1.9. He has a history of elevated creatinine of 1.7. Glucose 156. Cardiac enzymes are negative times 2 in the ED. ABG, pH 7.468, pCO2 of 33, pO2 of 79 on 28%. His D-dimer was elevated at 0.77, therefore a lung scan was performed that was low probability for PE, but finding suggesting COPD. CT of head due to his headache showed no acute abnormality, moderate burden of white matter changes representing chronic small vessel ischemic changes, mild cerebral blood loss, mild cerebral volume loss. Chest x-ray shows no acute cardiopulmonary disease. Cardiac pacemaker left sided is present. His EKG shows no acute changes. ASSESSMENT: 1. Rest chest pain with history of CAD, rule out acute coronary syndrome. 2. Right-sided headache, etiology unknown. 3. History of dementia. 4. History of TIA. 5. Diabetes mellitus. 6. Chronic renal insufficiency. 7. Essential hypertension. 8. Carotid occlusive disease. 9. Sick sinus syndrome. PLAN: The patient will be admitted for cardiac monitoring, serial cardiac HISTORY AND PHYSICAL [id number] MICHAEL TREJO enzymes. We will place on sliding scale insulin, hydrate cautiously. Dr. Allred has accepted the consultation tonight. NTS:[id number] Voice Confirmation ID: [id number] DOCUMENT ID: [id number] CONSUELO HUTSON MD at 0744 CC: [id number] DICTATION DATE: 03/21/201852 ASSISTED LIVING HOUSEKEEPER: 03/21/202056 ADM IN [address] [place] [address]
[2020-03-22 08:00] VITALS: BP 165/71
[2020-03-22 09:42] LABS: CKMB 1.9 U/L (0.0-3.6); CREATINE KINASE 134 UL (21-232); TROPONIN-I < 0.017 ng/mL (0.000-0.060)
--- NOTE | 2020-03-22 10:59 | NUR ---
PT AWAKE AND PLEANTLY CONFUSED THIS AM. AT BEDSIDE. NO COMPLAINTS OR CONCERNS. INTERROGATED PACEMAKER RESULTS SENT TO PACEMAKER READER. CL IN REACH, SRX2.
[2020-03-22 11:00] VITALS: BP 146/71
[2020-03-22 11:14] VITALS: Ht 185.4 cm; Wt 99.4 kg
[2020-03-22 12:00] LABS: BILIRUBIN NEGATIVE (NEGATIVE); GLUCOSE NEGATIVE (NEGATIVE); KETONE NEGATIVE (NEGATIVE); NITRITE NEGATIVE (NEGATIVE); UROBILINOGEN NORMAL (NORMAL)
[2020-03-22 16:19] VITALS: BP 107/77
--- NOTE | 2020-03-22 18:34 | NUR ---
I have reviewed this patient and I concur with the Shift Assessment completed by the Licensed Practical Nurse today this shift.
--- NOTE | 2020-03-22 19:45 | NUR ---
RECEIVED BEDSIDE REPORT AND ROUNDING COMPLETE. PATIENT IS ALERT AND ORIENTED, SITTING IN CHAIR EATING SNACK WITH HIS . RESPIRATIONS ARE EVEN AND UNLABORED. NO S/S OF DISTRESS. NO C/O PAIN. CALL LIGHT WITHIN REACH. WILL CPOC.
[2020-03-22 20:50] VITALS: BP 127/61
[2020-03-23 00:32] VITALS: BP 122/64
[2020-03-23 06:03] VITALS: BP 122/47
--- NOTE | 2020-03-23 07:15 | NUR ---
RECEIVED PT IN BED EYES CLOSED RESP UNLABORED SKIN W/D COLOR WNL NAD NOTED AT BEDSIDE
[2020-03-23 08:30] VITALS: BP 142/64
[2020-03-23] MEDS ORDERED: RANEXA500 MG PO (11:29)
[2020-03-23 11:30] VITALS: BP 135/71
[2020-03-23] MEDS ORDERED: SEROQUEL25 MG PO (11:31)
--- NOTE | 2020-03-23 13:30 | NUR ---
REVIWED DISCHARGE INSTRUCTIONS WITH PT AND STATE UNDERSTANDING COPY GIVEN DCD SALINE LOCK TO RFA WITH IV CATHETER INTACT SITE FREE OF REDNESS OR EDEMA PT DISCHARGED HOME IN STABLE CONDITION WITH ALL PERSONAL BELONGINGS LEFT UNIT VIA W/C
== END 2020-03-23 13:30 | disposition home or self-care (01) ==
LOC: D.ER 11:39 → D.M2 17:42 → OBSVTIME 17:42 → D.M2 03-23 13:30
PROVIDERS: Family Medicine; ADMIT Family Medicine; ATTEND Family Medicine
DX: R07.9 Chest pain, unspecified (principal); D64.9 Anemia, unspecified; E11.65 Type 2 diabetes mellitus with hyperglycemia; E03.9 Hypothyroidism, unspecified; I49.5 Sick sinus syndrome; F03.90 Unspecified dementia, unspecified severity, without behavioral disturbance, psychotic disturbance, mood disturbance, and anxiety; I25.10 Atherosclerotic heart disease of native coronary artery without angina pectoris; E11.22 Type 2 diabetes mellitus with diabetic chronic kidney disease; I12.9 Hypertensive chronic kidney disease with stage 1 through stage 4 chronic kidney disease, or unspecified chronic kidney disease; N18.9 Chronic kidney disease, unspecified; E78.5 Hyperlipidemia, unspecified; Z95.0 Presence of cardiac pacemaker; G89.29 Other chronic pain; I48.0 Paroxysmal atrial fibrillation

== ENCOUNTER 2020-03-24 16:55 | Emergency (ER) | payer MEDICARE ==
[~2020-03-24] VITALS: Ht 185.4 cm; Wt 96.8 kg
[~2020-03-24 16:55] MED LIST changes: +RANEXA500 MG PO; +SEROQUEL25 MG PO
[2020-03-24 16:56] VITALS: Ht 185.4 cm; Wt 96.8 kg
[2020-03-24 17:39] LABS: BASOPHILS 0.6 % (0-2); EOSINOPHILS 2.4 % (0-7); HEMATOCRIT 37.5 % (42.0-54.0); HEMOGLOBIN 12.5 g/dL (13.5-17.5); IMMATURE GRANULOCYTES 0.2 % (0-5); LYMPHOCYTES 24.6 % (15-50); MCHC 33.3 g/dL (31.0-37.0); MCV 89.9 fL (80.0-100.0); MEAN PLATELET VOLUME 9.6 fL (7.4-10.4); MONOCYTES 6.9 % (2-11); NEUTROPHILS 65.3 % (40-80); PLATELET COUNT 123 10x3/uL (130-400); RBC 4.17 10x6/uL (4.20-6.10); RDW 13.8 % (11.5-14.5); WBC 6.2 10x3/uL (4.8-10.8)
[2020-03-24 17:56] LABS: CALC OSMOLALITY 287 mosm/kg (275-300); CARBON DIOXIDE 28.6 mmol/L (21.0-32.0); CHLORIDE - SERUM 104 mmol/L (98-107); CREATININE - SERUM 2.2 mg/dL (0.6-1.3); GLUCOSE 139 mg/dL (74-106); POTASSIUM - SERUM 4.1 mmol/L (3.5-5.1); SODIUM 139 mmol/L (136-145); UREA NITROGEN 35 mg/dL (7-18); eGFR NON AFRICAN AMERICAN 30 mL/min (90-120)
[2020-03-24 18:10] LABS: ALBUMIN 3.7 g/dL (3.4-5.0); ALKALINE PHOSPHATASE 86 U/L (30-120); ALT (SGPT) 14 U/L (10-68); BILIRUBIN - TOTAL 0.44 mg/dL (0.2-1.3); CKMB 2.1 U/L (0.0-3.6); CREATINE KINASE 111 UL (21-232); MAGNESIUM - SERUM 2.3 mg/dL (1.8-2.4); PROTEIN - SERUM 6.7 g/dL (6.4-8.2)
[2020-03-24 18:12] LABS: TROPONIN-I < 0.017 ng/mL (0.000-0.060)
[2020-03-24 18:23] LABS: APTT 28.6 SECONDS (22.8-39.4); INR 1.03 (0.85-1.17); PROTIME 13.5 SECONDS (11.6-15.0)
[2020-03-24 21:36] VITALS: BP 154/64
== END 2020-03-24 21:36 | disposition home or self-care (01) ==
LOC: D.ER 16:55
PROVIDERS: Family Medicine
DX: R55 Syncope and collapse (principal); K59.00 Constipation, unspecified; E11.9 Type 2 diabetes mellitus without complications; Z86.73 Personal history of transient ischemic attack (TIA), and cerebral infarction without residual deficits; E07.9 Disorder of thyroid, unspecified; I10 Essential (primary) hypertension; Z95.0 Presence of cardiac pacemaker; G30.9 Alzheimer's disease, unspecified; F02.80 Dementia in other diseases classified elsewhere, unspecified severity, without behavioral disturbance, psychotic disturbance, mood disturbance, and anxiety; Z79.84 Long term (current) use of oral hypoglycemic drugs

== ENCOUNTER 2020-04-22 08:03 | Day surgery (SDC) | payer MEDICARE ==
[~2020-04-22] VITALS: Ht 185.4 cm; Wt 93.6 kg
[2020-04-22 08:53] LABS: BASOPHILS 0.5 % (0-2); EOSINOPHILS 2.3 % (0-7); HEMATOCRIT 36.7 % (42.0-54.0); HEMOGLOBIN 12.4 g/dL (13.5-17.5); IMMATURE GRANULOCYTES 0.7 % (0-5); LYMPHOCYTES 17.8 % (15-50); MCH 29.7 pg (26.0-34.0); MCHC 33.8 g/dL (31.0-37.0); MEAN PLATELET VOLUME 9.7 fL (7.4-10.4); MONOCYTES 7.7 % (2-11); RBC 4.17 10x6/uL (4.20-6.10); RDW 13.7 % (11.5-14.5); WBC 7.5 10x3/uL (4.8-10.8)
[2020-04-22 08:56] LABS: PLATELET COUNT 162 10x3/uL (130-400)
[2020-04-22 09:00] LABS: CALCIUM 8.3 mg/dL (8.5-10.1); CARBON DIOXIDE 28.2 mmol/L (21.0-32.0); CREATININE - SERUM 1.9 mg/dL (0.6-1.3); POTASSIUM - SERUM 4.2 mmol/L (3.5-5.1)
[2020-04-22 09:09] VITALS: BP 136/64; Ht 185.4 cm; Wt 93.6 kg
[2020-04-22 09:17] LABS: APTT 30.3 SECONDS (22.8-39.4); INR 0.98 (0.85-1.17); PROTIME 12.9 SECONDS (11.6-15.0)
--- NOTE | 2020-04-23 15:18 | OP ---
PATIENT NAME: MICHAEL TREJO MEDICAL RECORD: [id number] :31 LOCATION:[facility] ADMISSION DATE: SURGEON: MARY KAY SAINI DO DATE OF OPERATION: 04/22/2020 PROCEDURE: Colonoscopy with polypectomy. INDICATIONS FOR PROCEDURE: Abnormal findings on CT, history of colon polyps, abnormal weight loss, hematochezia, left lower quadrant abdominal pain, right lower quadrant abdominal pain, rectal pain. SCOPE: Olympus video pediatric colonoscope. MEDICATIONS: Propofol 200 mg IV per anesthesia. WITHDRAWAL TIME: 12 minutes. ESTIMATED BLOOD LOSS: Minimal. COMPLICATIONS: None. FINDINGS: Informed consent was given. The patient was made comfortable with the above medication. After reaching an adequate level of sedation by slow IV push, the patient was placed on his left side. A digital rectal examination was performed and revealed some hemorrhoids that were not bleeding. The endoscope was advanced under direct visualization through the rectum to the cecum, confirmed by the presence of the appendiceal orifice and ileocecal valve. The endoscope was slowly withdrawn and mucosa was carefully examined. The prep quality was good. There were 3 polyps visualized on today's examination. The first was located in the ascending colon. It was a benign appearing sessile polyp, which measured approximately 3-4 mm in diameter. It was removed using hot forceps. There was another polyp in the descending colon which was benign appearing and sessile. It measured approximately 4 mm in diameter. It was removed using hot snare. In the sigmoid colon, there was another polyp, which was benign appearing sessile and measured approximately 6 mm in diameter. It was removed using a hot snare. 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 It did not bleed when provoked with the water jet. This was not coagulated on today's examination due to risk for complications based on its location, which was in the cecum. I think this is lower likelihood of bleeding as opposed to diverticula or the patient's hemorrhoids. There was evidence of mild diverticulosis involving the sigmoid colon without evidence of diverticulitis. Retroflexion was performed in the rectum with visualization of internal hemorrhoids, which were not actively bleeding. There also appeared to be some prolapse mucosal changes involving the distal rectum, which could also be playing a role in the patient's intermittent bleeding episodes. The endoscope was withdrawn from the patient. The patient tolerated the procedure well and there were no complications. IMPRESSION: 1. Three polyps as described above, removed using a combination of a hot snare and hot forceps. 2. Mild diverticulosis of the sigmoid colon. 3. Grade I internal hemorrhoids with external hemorrhoids. 4. 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 OPERATIVE REPORT [id number] MICHAEL TREJO PLAN AND RECOMMENDATIONS: 1. Discharge home when recovery parameters are met. 2. Follow up biopsy specimen results. 3. High fiber diet. 4. Continue current medications. 5. Anusol suppositories b.i.d. times 10 days. 6. Resume Plavix after 48 hours. 7. Follow up in GI clinic in 3-4 weeks to review symptoms after being on suppositories. TRANSINT:[id number] Voice Confirmation ID: [id number] DOCUMENT ID: [id number] MARY KAY SAINI DO at 1518 CC: [id number] DICTATION DATE: 04/22/20 1150 GRANULATOR TENDER: 04/22/20 2325 [facility] 04/22/20 [address] [place] [address]
== END 2020-04-22 12:30 | disposition home or self-care (01) ==
LOC: D.OPS 08:03
PROVIDERS: Anesthesiology; ATTEND Internal Medicine Gastroenterology
DX: Z86.010 Personal history of colon polyps (principal); R93.89 Abnormal findings on diagnostic imaging of other specified body structures; R63.4 Abnormal weight loss; K92.1 Melena; R10.32 Left lower quadrant pain; R10.31 Right lower quadrant pain; K62.89 Other specified diseases of anus and rectum; K63.5 Polyp of colon; K57.30 Diverticulosis of large intestine without perforation or abscess without bleeding; K64.0 First degree hemorrhoids; Q27.33 Arteriovenous malformation of digestive system vessel

== ENCOUNTER → 2020-12-25 09:30 | Outpatient (CLI) | payer MEDICARE ==
[2020-04-22 09:09] VITALS: BMI 27.2
== END | disposition home or self-care (01) ==
LOC: D.HCCECHO 09:30
PROVIDERS: ATTEND Internal Medicine Cardiovascular Disease
DX: I25.10 Atherosclerotic heart disease of native coronary artery without angina pectoris (principal)

== ENCOUNTER → 2021-01-02 14:55 | Outpatient (CLI) | payer MEDICARE ==
[2020-04-22 09:09] VITALS: BMI 27.2
== END | disposition home or self-care (01) ==
LOC: D.CT 13:15
PROVIDERS: ATTEND Internal Medicine Cardiovascular Disease
DX: I65.29 Occlusion and stenosis of unspecified carotid artery (principal)

== ENCOUNTER → 2021-02-19 08:34 | Outpatient (CLI) | payer MEDICARE ==
[2020-04-22 09:09] VITALS: BMI 27.2
[~2021-02-19 08:34] MED LIST changes: +TRESIBA FL100 UNIT/1 SC; +TRIAMTERENE-HC1 EAC3 PO
== END | disposition home or self-care (01) ==
LOC: D.HCCARDIO 08:34
PROVIDERS: ATTEND Internal Medicine Cardiovascular Disease
DX: R07.9 Chest pain, unspecified (principal)

== ENCOUNTER → 2021-02-20 11:58 | Day surgery (SDC) | payer MEDICARE ==
[~2021-02-20] VITALS: Ht 185.4 cm; Wt 95.9 kg
--- NOTE | ~2021-02-20 | HEMODYNAMI ---
PATIENT:MICHAEL TREJO MEDICAL RECORD: [id number] : 32 LOCATION:[facility] ADMISSION DATE: 02/20/21 Generatedon:115:03 Patient name: MICHAEL TREJO Patient #: [id number] : 1930 Date of study: 02/20/2021 Page: Of Hemodynamic Procedure Report Patient Data Patient Demographics Procedure consent was obtained First Name: MICHAEL Gender: Male Last Name: NEIL : 1930 Middle Initial: W Age: 89 year(s) Patient #: [id number] Race: SSN: [id number] Additional ID: [id number] Contact details Address: [address] [place] [address] DRIVE State: [place] City: [place] Zip code: [address] Past Medical History Allergies Allergen Reaction Date Comments Reported Other allergy 12/14/2019 MARCOS KELLEY Admission Admission Data Admission Date: 02/20/2021 Admission Time: 11:58 Arrival Date: 02/20/2021 Arrival Time: 0:00 Admit Source: Other Insurance Payor: Medicare [facility] #: [id number] Height (in.): 72.83 BSA: 2.19 (m2) Height (cm.): 185 BMI: 27.76 (kg/m2) Weight (lbs.): 209.44 Weight (kg.): 95 Lab Results Lab Result Date: 02/20/2021 Lab Result Time: 0:00 Biochemistry Name Units Result Min Max BUN mg/dl 30 --(----)-* 7 18 Creatinine mg/dl 1.7 --(----)-* 0.6 1.3 CBC Name Units Result Min Max Hemoglobin g/dl 11.8 *-(----)-- 13.5 17.5 Procedure Procedure Types Cath Procedure Diagnostic Procedure [facility] w/Coronaries Sedation Charges Moderate Sedation 10-24 minutes Procedure Description Procedure Date Procedure Date: 02/20/2021 Procedure Start Time: 14:48 Procedure End Time: 14:58 Procedure Staff Name Function Bryan Meyers MD Performing Physician Yissel Quinones RT Monitor Domenico Washburn RN Nurse Gloria Covarrubias RT Scrub Indication Atrial fibrillation Severe mitral valve stenosis Pulmonary hypertension Coronary risk factors Procedure Data Cath Procedure Fluoroscopy Diagnostic fluoroscopy Total fluoroscopy Time: 1.5 time: 1.5 min min Diagnostic fluoroscopy Total fluoroscopy dose: 641 dose: 641 mGy mGy Contrast Material Contrast Material Type Amount (ml) Isovue 300 70 Entry Location Entry Primary Successful Side Size Upsize Upsize Entry Closure Succes sful Closure Location (Fr) 1 (Fr) 2 (Fr) Remarks Device Remarks Femoral Right 5 Fr Exoseal artery Estimated blood loss: 5 ml Diagnostic catheters Device Type Used For End Catheter Placement MULTIPACK JL 4.0 5Fr Left Coronary catheter Angiography MULTIPACK 3DRC 5Fr Right Coronary catheter Angiography MULTIPACK Pigtail 5 Fr LV Angiography catheter Procedure Complications No complications Procedure Medications Medication Administration Route Dosage 0.9% NaCl I.V. 100 ml/hr Oxygen etCO2 Nasal cannula 3 l/min Heparin Flush Bag added to field 2 bags (1000units/500ml NS) Lidocaine 2% added to field 20 Versed I.V. 1 mg Fentanyl I.V. 50 mcg Versed I.V. 0.5 mg Fentanyl I.V. 25 mcg Hemodynamics Rest BSA: 2.19 (m2) HGB: 11.8 (g/dl) O2 Consumption: Estimated: 242.09 (ml/min) O2 Co nsumption indexed: Estimated:110.54 (ml/min/m) Heart Rate: 64 (bpm) Pressure Samples Time Site Value (mmHg) Purpose Heart Use Rate(bpm) 14:55 LV 71/-15,-6 Snapshot 63 14:55 AO 107/44(69) Pullback 62 14:55 LV 111/-5,2 Pullback 62 Gradients Valve Time Site 1 Site 2 Mean SEP/DFP Peak To Heart Use (mmHg) (sec/min) Peak Rate (mmHg) (bpm) Aortic 14:55 LV AO 19 20 4 62 111/-5,2 107/44(69) Calculations Valve P-P Mean Valve Index Valve Source Name Gradient Area Flow (cm2) Aortic 4 19 4 19 Snapshots Pre Cath Intra NCS Post Cath Vital Signs Time Heart Resp SPO2 etCO2 NIBP (mmHg) Rhythm Pain Sedation Rate (ipm) (%) (mmHg) Status Level (bpm) 14:37:00 73 19 100 29.1 149/67(124) NSR 0 (11) 10(A) , No pain 14:41:20 59 16 92 0 131/63(105) NSR 0 (11) 10(A) , No pain 14:45:34 63 15 94 0 127/58(91) NSR 0 (11) 10(A) , No pain 14:49:50 59 15 92 0 126/54(98) NSR 0 (11) 10(A) , No pain 14:54:00 61 15 96 0 127/64(101) NSR 0 (11) 10(A) , No pain 14:58:12 62 15 92 0 130/68(101) NSR 0 (11) 10(A) , No pain Medications Time Medication Route Dose Verified Delivered Reason Notes Eff ectiveness by by 14:37:46 0.9% NaCl I.V. 100 Bryan Guzmany used for ml/hr [facility] Uzair Washburn catcher helper 14:37:54 Oxygen etCO2 3 Bryan Domenico used for Nasal l/min [facility] U[facility] Washburn catcher helper cannula 14:38:03 Heparin Flush added 2 Bryan Bryan used for Bag to bags [facility] procedure (1000units/500ml field MD NAVA NS) 14:38:11 Lidocaine 2% added 20ml Bryan Travisory for local to vial [facility] anesthetic field MD NAVA 14:38:18 Versed I.V. 1 mg Bryan Domenico for [facility] Uzair Washburn RN sedation 14:38:25 Fentanyl I.V. 50 Bryan Guzmany for mcg [facility] Uzair Washburn RN sedation 14:46:05 Fentanyl I.V. 25 Bryan Domenico for mcg [facility] Uzair Washburn RN sedation 14:46:05 Versed I.V. 0.5 Bryan Gzumany for mg [facility] Uzair Washburn RN sedation Procedure Log Time Note 13:57:06 Informed consent obtained and on chart 13:57:14 Diagnostic Cath Status : Elective 13:57:45 Indication : Atrial fibrillation 13:57:55 Indication : Severe mitral valve stenosis 13:58:05 Indication : Pulmonary hypertension 13:58:26 Indication : Coronary risk factors 13:58:35 Arrival Date: 02/20/2021 12:00:00 AM 13:58:36 Admit Source: Other 13:58:38 Insurance Payor : Medicare 13:59:09 ACC Patient presents with Stable Angina CCS Anginal Class 2--Slight limitation of ordinary activity. 13:59:12 Procedure Status Elective Heart Cath (OP). 13:59:13 Time tracking: Regular hours (M-F 7:00 - 5:00) 13:59:17 Plan of Care:Hemodynamics will remain stable., Cardiac rhythm will remain stable., Comfort level will be maintained., Respiratory function will remain adequate., Patient/ family verbilizes understanding of procedure., Procedure tolerated without complication., Recovers from procedure without complications.. 14:27:23 Domenico Washburn RN sent for patient. Start room use. 14:34:25 Patient Height : 72.83 inches 14:34:28 Patient Weight : 209.44 lbs 14:35:14 Lab Result : BUN 30 mg/dl 14:35:14 Lab Result : Hemoglobin 11.8 g/dl 14:35:14 Lab Result : Creatinine 1.7 mg/dl 14:35:43 Vital chart was started 14:36:13 Patient received from Pre/Post Procedure Room to [facility] Alert and oriented. Tansferred to table in Supine position. 14:36:14 Warm blankets applied, and kris hugger turned on for patient comfort. 14:36:14 Correct patient and procedure confirmed by team. 14:36:15 Baseline sample Acquired. 14:36:15 ECG and BP/O2 sat monitors applied to patient. 14:36:21 Rhythm: sinus rhythm , paced 14:36:22 Full Disclosure recording started 14:36:26 H&P Date Dictated: 02/20/2021 Within 30 days and on chart., H&P Addendum completed by physician on day of procedure. (MUST COMPLETE FOR ALL OUTPATIENTS). 14:36:28 Pre-procedure instructions explained to patient. 14:36:28 Pre-op teaching completed and patient verbalized understanding. 14:36:30 Family in patients room. 14:36:31 Patient NPO since Midnight. 14:36:33 Is the patient allergic to Iodine/contrast media? No. 14:36:34 Was the patient premedicated? Yes 14:36:35 Is patient on blood thinner?Yes 14:36:39 ACC The patient was administered the following blood thiners within the last 24 hours: ACCPlavix 14:36:40 Patient diabetic? Yes. 14:36:41 If diabetic: On Metformin? No 14:36:44 Previous problem with sedation/anesthesia? No ? 14:36:45 Snore? Yes 14:36:49 Sleep apnea? No 14:36:50 Deviated septum? No 14:36:51 Opens mouth fully? Yes 14:36:52 Sticks out tongue? Yes 14:36:55 Airway obstruction? No ? 14:36:58 Dentures? No ? 14:37:01 Pre procedure: right dorsailis pedis pulse 2+ Normal; easily identifiable; not easily obliterated 14:37:03 Pre procedure: left dorsailis pedis pulse 2+ Normal; easily identifiable; not easily obliterated 14:37:05 Patient pain scale 0/10 ?. 14:37:09 IV patent on arrival in left forearm with 0.9% NaCl at [facility]. 14:37:11 Lab results completed and on chart. 14:37:16 Stress Test: no; N/A ? 14:37:20 Right groin area was prepped with chlora-prep and draped in sterile fashion 14:37:20 Alarms reviewed by RJim N. 14:37:21 Sharps counted by scrub and verified by R.N. 14:37:22 Physician arrived 14:37:22 --------ALL STOP TIME OUT------ 14:37:23 Final Timeout: patient, procedure, and site verified with staff and physician. All members of the team are in agreement. 14:37:24 Right groin site verified by team. 14:37:28 Fire Safety Assessment: A--An alcohol-based skin anteseptic being used preoperatively., C--Open oxygen or nitrous oxide is being used., D--An ESU, laser, or fiber-optic light is being used. 14:37:32 Physical assessment completed. ASA score P 2 - A patient with mild systemic disease as per Bryan Meyers MD. 14:37:44 3b) 30-44 Moderately reduced kidney function. 14:37:46 0.9% NaCl 100 ml/hr I.V. was administered by Domenico Wu RN; used for procedure; Verbal order read back and verified. 14:37:54 Oxygen 3 l/min etCO2 Nasal cannula was administered by Domenico Washburn RN; used for procedure; Verbal order read back and verified. 14:38:03 Heparin Flush Bag (1000units/500ml NS) 2 bags added to field was administered by Bryan Meyers MD; used for procedure; Verbal order read back and verified. 14:38:05 Maximum allowable contrast dose (3.7 X eGFR X 0.75)113 ml. 14:38:09 Sedation plan: IV Moderate Sedation Medication:Versed, Fentanyl 14:38:11 Lidocaine 2% 20ml vial added to field was administered by Bryan Meyers MD; for local anesthetic; Verbal order read back and verified. 14:38:12 Use device set Femoral Dx 14:38:13 ACIST Syringe (37139) opened to sterile field. 14:38:13 Bag Decanter (2002S) opened to sterile field. 14:38:13 Medline Cath Pack ([id number]) opened to sterile field. 14:38:15 ACIST Hand Control (49770) opened to sterile field. 14:38:15 ACIST Manifold (08598) opened to sterile field. 14:38:16 DIAGNOSTIC Multipack 5Fr catheter set ([id number]) opened to sterile field. 14:38:16 Tegaderm 4 x 4 (1626W) opened to sterile field. 14:38:17 SHEATH 5FR Winona (GWU937) opened to sterile field. 14:38:17 EMERALD Guide Wire (796-529) opened to sterile field. 14:38:18 Versed 1 mg I.V. was administered by Domenico Washburn RN; for sedation; Verbal order read back and verified. 14:38:25 Fentanyl 50 mcg I.V. was administered by Domenico Washburn RN; for sedation; Verbal order read back and verified. 14:46:05 Fentanyl 25 mcg I.V. was administered by Domenico Washburn RN; for sedation; Verbal order read back and verified. 14:46:05 Versed 0.5 mg I.V. was administered by Domenico Washburn RN; for sedation; Verbal order read back and verified. 14:48:19 Procedure started. 14:48:25 Local anesthetic to right femoral artery with Lidocaine 2% by Bryan Meyers MD.INITIAL ACCESS ONLY 14:48:36 A 5 Fr sheath was inserted into the Right Femoral artery 14:50:00 A MULTIPACK JL 4.0 5Fr catheter was advanced over the wire and used for Left Coronary Angiography. 14:50:25 LCA angiography performed. 14:50:29 Injector settings: Ml/sec: 3, Volume: 6, 14:51:33 Catheter removed. 14:51:38 A MULTIPACK 3DRC 5Fr catheter was advanced over the wire and used for Right Coronary Angiography. 14:52:51 RCA angiography performed. 14:52:59 Injector settings: Ml/sec: 3, Volume: 6, 14:53:09 Catheter removed. 14:53:32 A MULTIPACK Pigtail 5 Fr catheter was advanced over the wire and used for LV Angiography. 14:53:38 Zero performed for pressure channel P1 14:53:43 Zero performed for pressure channel P1 14:55:19 LV hemodynamics recorded. 14:55:20 LV gram done using VELASQUEZ 14:55:23 Injector settings: Ml/sec: 5, Volume: 15, 14:55:34 EF : 55 % 14:55:41 Catheter removed. 14:55:43 EXOSEAL 5Fr (EX500) opened to sterile field. 14:55:54 Sheath removed intact; hemostasis achieved with Exoseal to the Right Femoral artery. 14:55:57 Procedure ended.(Physican Out) 14:56:15 Fluoroscopy time 01.50 minutes. 14:56:28 Fluoroscopy dose: 641 mGy 14:56:28 Flurop Dose total: 641 14:56:34 Dose Area Product 71943 mGy/cm. 14:56:38 Contrast amount:Isovue 300 70ml. 14:56:40 Maximum allowable dose exceeded? No. 14:56:41 Sharps counted by scrub and verified by R.N. 14:56:42 Insertion/operative site no bleeding no hematoma. 14:56:45 Post-op/insertion site Right Femoral artery dressed using a 4 x 4 and Tegaderm. 14:56:47 Post right femoral artery:stable 14:56:50 Post Procedure Pulses reassessed and unchanged 14:56:53 Post procedure rhythm: unchanged. 14:56:55 Estimated blood loss: 5 ml 14:56:57 Post procedure instruction explained to patient.Patient verbalizes understanding. 14:56:57 Patient needs reinforcement of post procedure teaching. 14:57:53 Procedure type changed to Cath procedure, Diagnostic procedure, LHC, C w/Coronaries, Sedation Charges, Moderate Sedation 10-24 minutes 14:57:54 Procedure and supply charges have been captured, reviewed, submitted and are correct. 14:57:58 Procedure Complication : No complications 14:58:01 Vital chart was stopped 14:58:02 [facility] Findings: mild to moderate CAD (<70%) 14:58:05 Operative report dictated upon procedure completion. 14:58:05 See physician's report for complete and final results. 14:58:08 Report given to Pre/Post Procedure Room. 14:58:11 Patient transfered to Pre/Post Procedure Room with Stretcher. 14:58:13 Procedure ended. 14:58:13 Full Disclosure recording stopped 14:58:19 End room use (Document Last) 15:01:42 End room use (Document Last) 15:02:03 End room use (Document Last) 15:02:22 End room use (Document Last) Device Usage Item Name Manufacture Quantity Catalog Hospital Part Current Minimal L ot# / Number Charge Number Stock Stock Serial# Code ACIST Acist 1 81112 283385 918632 007086 20 Syringe Medical (04990) Systems Inc Bag Microtek 1 2001S 332826 57203 985461 5 Decanter Medical Inc. () Medline Medline 1 [id number] 443703 27364 704808 5 Cath Pack ([id number]) ACIST Hand Acist 1 25775 009368 378754 796469 5 Control Medical (49661) Systems Inc ACIST Acist 1 29561 508054 843706 139311 5 Manifold Medical (62695) Systems Inc DIAGNOSTIC Cardinal 1 [id number] 367837 13145 697373 30 Multipack Lingospot[employer] Inc. 5Fr catheter set (LH5736) Tegaderm 4 3M 1 1626W 932214 334259 635394 5 x 4 (1626W) SHEATH 5FR Terumo 1 HTI820 893339 566799 460405 5 Winona (FVZ297) EMERALD Cardinal 1 502-455 900995 532388 061488 5 Guide Wire [facility] (502-082) MULTIPACK Cardinal 1 095829 5 JL 4.0 5Fr Health catheter MULTIPACK Cardinal 1 830748 5 3DRC 5Fr Health catheter MULTIPACK Cardinal 1 385690 5 Pigtail 5 Health Fr catheter EXOSEAL 5Fr Cardinal 1 EX500 364326 460007 689058 10 (EX500) Health Signature Audit [place] Stage Time Signature Unsigned Intra-Procedure 02/20/2021 Yissel Quinones 3:01:42 PM RT(R) Intra-Procedure 02/20/2021 Yissel Quinones 3:02:03 PM RT(R) Intra-Procedure 02/20/2021 Domenico Washburn RN 3:02:22 PM Intra-Procedure 02/20/2021 Bryan Saleh 3:03:10 PM Uzair NAVA Signatures Performing Physician : Signature : Bryan Meyers MD Date : Time : Monitor : Yissel Quinones RT Signature : Date : Time : Nurse : Domenico Washburn RN Signature : Date : Time : [address] [address]
[2021-02-20 12:25] VITALS: BP 177/77; Ht 185.4 cm; Wt 95.9 kg
[2021-02-20 13:01] LABS: BASOPHILS 1.1 % (0-2); HEMATOCRIT 35.2 % (42.0-54.0); HEMOGLOBIN 11.8 g/dL (13.5-17.5); LYMPHOCYTES 27.4 % (15-50); MCHC 33.6 g/dL (31.0-37.0); MCV 86.2 fL (80.0-100.0); MEAN PLATELET VOLUME 7.8 fL (7.4-10.4); MONOCYTES 10.8 % (2-11); NEUTROPHILS 57.7 % (40-80); RBC 4.08 10x6/uL (4.20-6.10); RDW 14.6 % (11.5-14.5); WBC 5.4 10x3/uL (4.8-10.8)
[2021-02-20 13:12] LABS: ANION GAP 11.9 mmol/L (8-16); CALCIUM 8.2 mg/dL (8.5-10.1); CARBON DIOXIDE 27.4 mmol/L (21.0-32.0); CHOL - HDL RATIO 3.1 ratio (2.3-4.9); CREATININE - SERUM 1.7 mg/dL (0.6-1.3); LDL-HDL RATIO 1.1 ratio (1.5-3.5); POTASSIUM - SERUM 4.3 mmol/L (3.5-5.1)
[2021-02-20 13:20] LABS: PLATELET COUNT 121 10x3/uL (130-400)
--- NOTE | 2021-02-20 15:11 | NUR ---
PT REC'D TO DIRECTOR CLIENT RECOVERY ROOM 7 VIA STRETCHER. AT BS. SEE JOINT FINISHER FLOWSHEETS. ALARMS ON AND C/L IN REACH.
--- NOTE | 2021-02-20 15:25 | NUR ---
R GROIN SITE SOFT, NO S/S BLEEDING OR HEMATOMA. PULSES PALP. VSS. PT RESTING QUIETLY. ALARMS ON AND C/L IN REACH.
--- NOTE | 2021-02-20 15:55 | NUR ---
R GROIN EXOSEAL SITE SOFT, NO S/S BLEEDING OR HEMATOMA. R LEG/FOOT WARM WITH PALP PULSES AND BRISK CAP REFILL. VSS. PT DENIES PAIN OR NEEDS. VSS. C/L IN REACH.
--- NOTE | 2021-02-20 16:15 | NUR ---
R GROIN SITE SOFT, NO S/S BLEEDING OR HEMATOMA. PULSES PALP. HOB ELEVATED. SANDWICH TRAY AND DIET COLA PROVIDED, ASSISTING PT. VSS. C/L IN REACH.
--- NOTE | 2021-02-20 16:30 | NUR ---
R GROIN SITE C/D/I, NO S/S BLEEDING. PULSES PALP. PT ATE ALL OF SANDWICH. VSS.
--- NOTE | 2021-02-20 16:43 | NUR ---
ALL DISCHARGE INSTRUCTIONS REVIEWED WITH PT AND HIS , INCLUDING RESTRICTIONS, MEDS AND F/U APPT - BOTH VERBALIZE UNDERSTANDING. PIV D/C'D INTACT, DSG APPLIED. PT ALLOWED UP TO GET DRESSED, ASSISTING PT. THEN PT TO BR INDEPENDENTLY.
--- NOTE | 2021-02-20 17:00 | NUR ---
PT D/C'D VIA WC TO PRIVATE VEHICLE WITH ALL BELONGINGS AND PAPERWORK.
--- NOTE | 2021-02-21 07:50 | OP ---
PATIENT NAME: MICHAEL TREJO MEDICAL RECORD: [id number] :32 LOCATION:D.CAT ADMISSION DATE: SURGEON: WANG RIGGINS MD DATE OF OPERATION: 02/20/2021 PROCEDURE: Left heart catheterization, selective coronary angiography, right femoral artery approach. CATHETERS: A 5-Kiswahili sheath, 5/4 left and right Ngozi, 5/4 pig. The procedure was well tolerated. The patient was returned to the [place]. Sheath removed. ExoSeal device was placed. FINDINGS: Left ventriculography in 30 degree VELASQUEZ view: Normal wall motion, normal systolic function. CORONARY ANATOMY: Left main: Left main is free of disease. LAD: Area of previous stent is widely patent. No evidence of restenosis. No progression of robinson disease. Circumflex: Some moderate sized circumflex, previously placed stent is widely patent. Right coronary artery: Has a proximally placed stent that is widely patent. This is a right dominant system giving rise to PDA and otherwise no progression of robinson disease. IMPRESSION: Widely patent stents. No progression of robinson disease. Left ventricular function remains normal. TRANSINT:[id number] Voice Confirmation ID: [id number] DOCUMENT ID: [id number] WANG RIGGINS MD at 0750 CC: [id number] DICTATION DATE: 02/20/21 1500 IOS DEVELOPER: 02/20/[address] [facility] 02/20/21 [facility] [address] [place] [address]
--- NOTE | 2021-02-25 07:57 | HP ---
PATIENT: MICHAEL TREJO MEDICAL RECORD: [id number] ACCOUNT: [id number] LOCATION:YANET : 31 ADMISSION DATE: 02/20/21 PCP: YASMIN JANG MD HISTORY AND PHYSICAL EXAMINATION HISTORY OF PRESENT ILLNESS: An 89-year-old gentleman with a known history of coronary artery disease, status post intervention, most recently via Dr. Lynn. He has been having increasing angina despite medical therapy, was initially scheduled for a Cardiolite imaging; however, had episode of rest symptomatology. He denies being put forth for diagnostic angiography. PAST MEDICAL HISTORY: Includes: 1. History of hypertension. 2. Hyperlipidemia. 3. Diabetes mellitus. 4. Coronary artery disease as described above. MEDICATIONS: Chronically include Cardizem 120 every day, glimepiride 4 mg p.o. every day, Synthroid 112 mcg every day, Plavix 75 every day, Ranexa 500 b.i.d., Seroquel 12.5 b.i.d. PHYSICAL EXAMINATION: GENERAL: Pleasant, in no acute distress, appears younger than stated age. HEENT: Normocephalic, atraumatic. NECK: No JVD or bruit. HEART: Regular. LUNGS: Good air excursion. ABDOMEN: Soft and nontender. Pulses are 2+. EXTREMITIES: There is no edema. IMPRESSION: Class III-IV angina at this point, despite calcium channel salvatore as well as Ranexa. We will plan for angiography and intervention based on the above. 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
== END | disposition home or self-care (01) ==
LOC: D.CATH 11:58
PROVIDERS: ATTEND Internal Medicine Interventional Cardiology
DX: I25.119 Atherosclerotic heart disease of native coronary artery with unspecified angina pectoris (principal); I48.91 Unspecified atrial fibrillation; R07.9 Chest pain, unspecified; I10 Essential (primary) hypertension; I34.9 Nonrheumatic mitral valve disorder, unspecified; Z95.0 Presence of cardiac pacemaker; I65.29 Occlusion and stenosis of unspecified carotid artery